=== PATIENT | male | born 1975 | race African-American/Black ===

== ENCOUNTER 2017-02-07 12:41 | Inpatient (IN) | payer OTHER ==
[2017-02-07 14:03] VITALS: BMI 32.4
--- NOTE | 2017-02-07 15:37 | HP ---
CIWA Score - CIWA Score Nausea/Vomitin-No Nausea/No Vomiting Muscle Tremors: 4-Moderate,w/Arms Extend Anxiety: 3 Agitation: 4-Moderately Restless Paroxysmal Sweats: 3 Orientation: 0-Oriented Tacttile Disturbances: 0-None Auditory Disturbances: 0-None Visual Disturbances: 0-None Headache: 1-Very Mild CIWA-Ar Total Score: 15 Admission ROS BHS - HPI Chief Complaint: I never want to drink again. Allergies/Adverse Reactions: Allergies Allergy/AdvReac Type Severity Reaction Status Date / Time No Known Allergies Allergy Verified 02/07/17 14:33 History of Present Illness: pt is a 41yr old male with a history of alcohol and cocaine dependence seeking detox for treatment. Exam Limitations: No Limitations - Ebola screening Have you traveled outside of the country in the last 21 days: No Have you had contact with anyone from an Ebola affected area: No Have you been sick,other than usual withdrawal symptoms: No Do you have a fever: No - Review of Systems Constitutional: Chills, Diaphoresis, Loss of Appetite, Night Sweats, Changes in sleep, Unintentional Wgt. Loss EENT: reports: No Symptoms Reported Respiratory: reports: No Symptoms reported Cardiac: reports: No Symptoms Reported GI: reports: Poor Appetite, Poor Fluid Intake : reports: No Symptoms Reported Musculoskeletal: reports: Back Pain, Joint Pain Integumentary: reports: Flushing, Sweating Neuro: reports: Tingling, Tremors Endocrine: reports: Excessive Sweating, Flushing, Intolerance to Cold, Intolerance to Heat Hematology: reports: No Symptoms Reported Psychiatric: reports: Judgement Intact, Mood/Affect Appropiate, Orientated x3, Agitated, Anxious Other Systems: Reviewed and Negative Patient History - Patient Medical History Hx Anemia: No Hx Asthma: No Hx Chronic Obstructive Pulmonary Disease (COPD): No Hx Cancer: No Hx Cardiac Disorders: No Hx Congestive Heart Failure: No Hx Hypertension: Yes Hx Hypercholesterolemia: Yes (NO CURRENT MED) Hx Pacemaker: No HX Cerebrovascular Accident: No Hx Seizures: No Hx Dementia: No Hx Diabetes: Yes (ON METFORMIN) Hx Gastrointestinal Disorders: No ([id number]) Hx Liver Disease: No Hx Genitourinary Disorders: No Hx Sexually Transmitted Disorders: No Hx Renal Disease (ESRD): No Hx Thyroid Disease: No Hx Human Immunodeficiency Virus (HIV): No (NEGATIVE HX) Hx Hepatitis C: No Hx Depression: Yes Hx Suicide Attempt: No Hx Bipolar Disorder: No Hx Schizophrenia: No Other Medical History: insomnia - Patient Surgical History Past Surgical History: Yes Hx Orthopedic Surgery: Yes (L tibia fx sx in 2015;R FIBULA 10 YRS AGO) Anesthesia Reaction: No - PPD History Previous Implant?: Yes Documented Results: Negative w/proof Implanted On Prior [facility] Admission?: Yes Results: 0 mm PPD to be Administered?: Yes - Reproductive History Patient is a Female of Child Bearing Age (11 -55 yrs old): No - Smoking Cessation Smoking history: Current some day smoker Have you smoked in the past 12 months: Yes Aproximately how many cigarettes per day: 1 Hx Chewing Tobacco Use: No Initiated information on smoking cessation: Yes 'Breaking Loose' booklet given: 02/07/17 - Substance & Tx. History Hx Alcohol Use: Yes Hx Substance Use: Yes Substance Use Type: Alcohol, Cocaine Hx Substance Use Treatment: Yes (last detox 10/2015) - Substances Abused Alcohol Route: Oral Frequency: Daily Amount used: vodka(4-1/2 pints)/beer(5-24oz cans) Age of first use: 16 Date of Last Use: 02/06/17 Crack Route: Smoking Frequency: Daily Amount used: $60 Age of first use: 27 Date of Last Use: 02/06/17 Family Disease History - Family Disease History Family Disease History: Diabetes: Father (), Mother (), Heart Disease: Father, Mother, CA: Father, Mother Admission Physical Exam BHS - Vital Signs Vital Signs: Vital Signs - 24 hr 02/07/17 14:01 Temperature 98.1 F Pulse Rate 84 Respiratory 18 Rate Blood Pressure 144/85 - Physical General Appearance: Yes: Appropriately Dressed, Moderate Distress, Obese, Tremorous, Irritable, Sweating, Anxious HEENTM: Yes: Hearing grossly Normal, Hearing Decreased, Nasal Congestion Respiratory: Yes: Lungs Clear, Normal Breath Sounds, No Respiratory Distress Neck: Yes: No masses,lesions,Nodules Breast: Yes: Within Normal Limits Cardiology: Yes: Regular Rhythm, Regular Rate, S1, S2 Abdominal: Yes: Normal Bowel Sounds, Non Tender, Soft Genitourinary: Yes: Within Normal Limits Back: Yes: Normal Inspection Musculoskeletal: Yes: full range of Motion, Back pain Extremities: Yes: Normal Capillary Refill, Normal Inspection, Non-Tender, Tremors Neurological: Yes: Fully Oriented, Alert, Normal Response Integumentary: Yes: Normal Color, Diaphoresis Lymphatic: Yes: Within Normal Limits - Diagnostic (1) Alcohol dependence with uncomplicated withdrawal Current Visit: Yes Status: Chronic (2) Cocaine dependence, uncomplicated Current Visit: Yes Status: Chronic (3) Hypertension Current Visit: Yes Status: Chronic Qualifiers: Hypertension type: essential hypertension (4) Nicotine dependence Current Visit: Yes Status: Chronic Qualifiers: Nicotine product type: cigarettes Substance use status: uncomplicated Qualified Code(s): F17.210 - Nicotine dependence, cigarettes, uncomplicated (5) Type 2 diabetes mellitus Current Visit: Yes Status: Chronic Qualifiers: Diabetes mellitus complication status: without complication Diabetes mellitus long term care pharmacist insulin use: with long term care pharmacist use Qualified Code(s): E11.9 - Type 2 diabetes mellitus without complications; 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
[2017-02-07] MEDS ORDERED: MAGNESIUM HYDROX 2400MG/30ML ORAL SUSPENSION 30 ML CUP PO PRN (15:46)
[2017-02-07] MEDS ORDERED: chlordiazePOXIDE HCL 25 MG CAPSULE PO PRN (15:46)
[2017-02-07] MEDS ORDERED: MENTHOL/PHENOL 1 EACH UD MM PRN (15:46)
[2017-02-07] MEDS ORDERED: guaiFENesin/D-METHORPHAN HB 10 ML UNIT-DOSE CUPS PO PRN (15:46)
[2017-02-07] MEDS ORDERED: LOPERAMIDE HCL 2 MG CAPSULE PO PRN (15:46)
[2017-02-07] MEDS ORDERED: MAGNESIUM CITRATE 300 ML BOTTLE PO PRN (15:46)
[2017-02-07] MEDS ORDERED: diphenhydrAMINE HCL 50 MG CAPSULE PO PRN (15:46)
[2017-02-07] MEDS ORDERED: ACETAMINOPHEN 325 MG TABLET (FP) PO PRN (15:46)
[2017-02-07] MEDS ORDERED: chlordiazePOXIDE HCL 25 MG CAPSULE PO ONE (15:46)
[2017-02-07] MEDS ORDERED: NICOTINE POLACRILEX 4 MG GUM BC PRN (15:46)
[2017-02-07] MEDS ORDERED: hydrOXYzine PAMOATE 50 MG CAPSULE (FP) PO PRN (15:46)
[2017-02-07] MEDS ORDERED: IBUPROFEN 400 MG TABLET (FP) PO PRN (15:46)
[2017-02-07] MEDS ORDERED: MAG HYDROX/AL HYDROX/SIMETH 30 ML UNIT-DOSE CUP PO PRN (15:46)
[2017-02-07] MEDS ORDERED: P-EPHED 60MG/TRIPROLIDI 2.5MG TABLET PO PRN (15:46)
[2017-02-07] MEDS ORDERED: INSULIN (NOVOLOG) ASPART 100 UNITS/ML 10ML VIAL ONE (19:29)
[2017-02-07] MEDS: LISINOPRIL 10 MG TABLET (FP) PO SCH (19:35)
[2017-02-07] MEDS: HYDROCHLOROTHIAZIDE 25 MG TABLET (FP) PO SCH (19:36)
[2017-02-07] MEDS: INSULIN (NOVOLOG) ASPART 100 UNITS/ML 10ML VIAL SQ SCH (19:44)
[2017-02-07] MEDS: chlordiazePOXIDE HCL 25 MG CAPSULE PO SCH ×2 (19:54→22:29)
[2017-02-07] MEDS: THIAMINE HCL 100 MG TABLET (FP) PO SCH (22:29)
[2017-02-08] MEDS: chlordiazePOXIDE HCL 25 MG CAPSULE PO SCH ×4 (06:02→22:35)
[2017-02-08] MEDS ORDERED: INSULIN (NOVOLOG) ASPART 100 UNITS/ML 10ML VIAL ONE ×3 (06:16→17:06)
[2017-02-08] MEDS: INSULIN (NOVOLOG) ASPART 100 UNITS/ML 10ML VIAL SQ SCH ×3 (06:16→17:10)
[2017-02-08 09:24] LABS: HIV 1 & 2 AB NEGATIVE; HIV 1 AGp24 NEGATIVE
[2017-02-08 09:57] LABS: MCHC 31.7 g/dl (32.0-35.9); MEAN CELL VOLUME 88.4 fl (80-96); MEAN PLT VOLUME 10.7 fl (7.5-11.1); PLATELET COUNT 454 K/MM3 (134-434); RDW 13.4 % (11.9-15.9); WHITE BLOOD COUNT 8.6 K/mm3 (4.0-10.0)
[2017-02-08] MEDS: LISINOPRIL 10 MG TABLET (FP) PO SCH (10:30)
[2017-02-08] MEDS: PRENATAL VITAMINS W/ FOLIC ACID TABLET (FP) PO SCH (10:30)
[2017-02-08] MEDS: NICOTINE 7 MG/24 HOURS TOPICAL PATCH TD SCH (10:30)
[2017-02-08] MEDS: HYDROCHLOROTHIAZIDE 25 MG TABLET (FP) PO SCH (10:30)
[2017-02-08 10:49] LABS: ALBUMIN 3.5 g/dl (3.4-5.0); ALK PHOS 102 U/L (45-117); ANION GAP 9 (8-16); BILIRUBIN,TOTAL 0.3 mg/dL (0.2-1.0); CALCIUM 9.7 mg/dL (8.5-10.1); CO2 26 mmol/L (21-32); CREATININE 1.1 mg/dL (0.7-1.3); GLUCOSE,RANDOM 216 mg/dL (74-106); SGOT/AST 17 U/L (15-37); SGPT/ALT 21 U/L (12-78); TOT PROT 7.5 g/dl (6.4-8.2)
--- NOTE | 2017-02-08 10:51 | PN ---
S CIWA - CIWA Score Nausea/Vomitin Muscle Tremors: 4-Moderate,w/Arms Extend Anxiety: 4-Mod. Anxious/Guarded Agitation: 4-Moderately Restless Paroxysmal Sweats: 3 Orientation: 0-Oriented Tacttile Disturbances: 1-Very Mild Itch/Numbness Auditory Disturbances: 0-None Visual Disturbances: 0-None Headache: 1-Very Mild CIWA-Ar Total Score: 20 BHS Progress Note (SOAP) Subjective: nausea, sweats, interrupted sleep, anxiety, tremors Objective: 02/08/17 10:50 Vital Signs - 24 hr 02/07/17 02/07/17 02/08/17 14:01 22:20 00:34 Temperature 98.1 F 98.7 F Pulse Rate 84 64 Respiratory 18 19 18 Rate Blood Pressure 144/85 158/88 02/08/17 02/08/17 02/08/17 03:26 06:34 09:25 Temperature 98.1 F 99.8 F H Pulse Rate 75 76 Respiratory 18 18 18 Rate Blood Pressure 127/76 128/83 Laboratory Tests 02/07/17 02/07/17 02/07/17 15:00 15:09 19:24 WBC RBC Hgb Hct MCV MCH MCHC RDW Plt Count MPV Sodium Potassium Chloride POC Glucometer 233 258 HIV 1&2 Antibody Screen Negative HIV P24 Antigen Negative 02/08/17 02/08/17 02/08/17 06:00 06:00 06:00 WBC 8.6 RBC 3.98 L Hgb 11.1 L D Hct 35.2 L MCV 88.4 MCH 28.0 MCHC 31.7 L RDW 13.4 Plt Count 454 H D MPV 10.7 Sodium 139 Potassium 4.4 Chloride 104 POC Glucometer 228 HIV 1&2 Antibody Screen HIV P24 Antigen Assessment: 02/08/17 10:50 withdrawal sx, hyperglycemia Plan: cont detox, fluids, encourage ambulation, control BS
--- NOTE | 2017-02-08 11:37 | CONSULT ---
[facility] Psychiatric Consult - Data Date of interview: 02/08/17 Admission source: [facility] Identifying data: Readmission to [facility] for this 41 y/o AA male seeking detox treatment on for alcohol and cocaine (crack) dependence.Patient is single,a father of three,homeless,unemployed and supported on welfare. Substance Abuse History: Confirmed by patient. Smoking Cessation. Smoking history: Current some day smoker. Have you smoked in the past 12 months: Yes. Aproximately how many cigarettes per day: 1. Hx Chewing Tobacco Use: No. Initiated information on smoking cessation: Yes. 'Breaking Loose' booklet given : 02/07/17. - Substance & Tx. History. Hx Alcohol Use: Yes. Hx Substance Use : Yes. Substance Use Type: Alcohol, Cocaine. Hx Substance Use Treatment: Yes ( last detox 10/2015). - Substances Abused. Alcohol. Route: Oral. Frequency : Daily. Amount used: vodka(4-1/2 pints)/beer(5-24oz cans). Age of first use: 16. Date of Last Use: 02/06/17. Crack. Route: Smoking. Frequency: Daily. Amount used: $60. Age of first use: 27. Date of Last Use: 02/06/17 Medical History: Diabetes mellitus,obesity,hypertension and low back pain.History of orthosurgery for fracture of left tibia (2014) and right fibula (2005). Psychiatric History: History of one psychiatric hospitalization (2009) at [facility].Questionable diagnosis of MDD.No history of OPD care.Mr Choi denies history of suicide attempts. Physical/Sexual Abuse/Trauma History: No history of abuse. Additional Comment: Urine Drug Screen Results: JAKY-Cocaine, BZO- Benzodiazepines.Noted. Mental Status Exam - Mental Status Exam Alert and Oriented to: Time, Place, Person Cognitive Function: Good Patient Appearance: Well Groomed Mood: Withdrawn, Hopeful, Euthymic Affect: Normal Range Patient Behavior: Fatigued, Cooperative Speech Pattern: Clear Voice Loudness: Normal Thought Process: Intact, Goal Oriented Thought Disorder: Not Present Hallucinations: Denies Suicidal Ideation: Denies Homicidal Ideation: Denies Insight/Judgement: Poor Sleep: Poorly, Difficulty falling asleep (wants trazodone) Appetite: Good Muscle strength/Tone: Normal Gait/Station: Normal Psychiatric Findings - Problem List ([place] 1, 2,3) (1) Alcohol dependence with uncomplicated withdrawal Current Visit: Yes Status: Acute (2) Cocaine dependence, uncomplicated Current Visit: Yes Status: Acute (3) Nicotine dependence Current Visit: Yes Status: Acute Qualifiers: Nicotine product type: cigarettes Substance use status: uncomplicated Qualified Code(s): F17.210 - Nicotine dependence, cigarettes, uncomplicated (4) Hypertension Current Visit: Yes Status: Chronic Qualifiers: Hypertension type: essential hypertension (5) Type 2 diabetes mellitus Current Visit: Yes Status: Chronic Qualifiers: Diabetes mellitus complication status: without complication Diabetes mellitus intermediate project manager insulin use: with intermediate project manager use Qualified Code(s): E11.9 - Type 2 diabetes mellitus without complications (6) Obese Current Visit: Yes Status: Chronic (7) Insomnia Current Visit: Yes Status: Acute - Initial Treatment Plan Initial Treatment Plan: Psychoeducation.Detoxification.Observation.
[2017-02-08 17:27] LABS: URINE APPEARANCE CLEAR; URINE BILIRUBIN NEGATIVE (NEGATIVE); URINE BLOOD NEGATIVE (NEGATIVE); URINE COLOR LTYELLOW; URINE GLUCOSE (UA) 3+ (NEGATIVE); URINE KETONE NEGATIVE (NEGATIVE); URINE LEUK ESTERASE NEGATIVE (NEGATIVE); URINE NITRITE NEGATIVE (NEGATIVE); URINE PROTEIN NEGATIVE (NEGATIVE); URINE UROBILINOGEN NEGATIVE mg/dL (0.2-1.0)
[2017-02-08] MEDS: traZODone HCL 100 MG TABLET (FP) PO SCH (22:35)
[2017-02-08] MEDS: THIAMINE HCL 100 MG TABLET (FP) PO SCH (22:35)
[2017-02-09] MEDS: chlordiazePOXIDE HCL 25 MG CAPSULE PO SCH ×2 (06:05→10:42)
[2017-02-09] MEDS ORDERED: INSULIN (NOVOLOG) ASPART 100 UNITS/ML 10ML VIAL ONE ×2 (07:46→16:31)
[2017-02-09] MEDS: INSULIN (NOVOLOG) ASPART 100 UNITS/ML 10ML VIAL SQ SCH ×3 (07:56→16:45)
[2017-02-09] MEDS ORDERED: ONDANSETRON *ODT* 4 MG TABLET SL PRN (10:22)
[2017-02-09] MEDS: LISINOPRIL 10 MG TABLET (FP) PO SCH (10:42)
[2017-02-09] MEDS: HYDROCHLOROTHIAZIDE 25 MG TABLET (FP) PO SCH (10:42)
[2017-02-09] MEDS: NICOTINE 7 MG/24 HOURS TOPICAL PATCH TD SCH (10:42)
[2017-02-09] MEDS: PRENATAL VITAMINS W/ FOLIC ACID TABLET (FP) PO SCH (10:42)
--- NOTE | 2017-02-09 12:40 | PN ---
[facility] CIWA - CIWA Score Nausea/Vomitin-Int. Nausea w/Dry Heave Muscle Tremors: 4-Moderate,w/Arms Extend Anxiety: 4-Mod. Anxious/Guarded Agitation: 3 Paroxysmal Sweats: 3 Orientation: 0-Oriented Tacttile Disturbances: 2-Mild Itch/Numbness/Burn Auditory Disturbances: 0-None Visual Disturbances: 0-None Headache: 0-None Present CIWA-Ar Total Score: 20 [facility] Progress Note (SOAP) Subjective: Tremors, Nausea, Stomach Cramping, Anxious, Fatigue, Body Aches, Interrupted Sleep, Sweating. Objective: PT. A & O X 3, OBSERVED AMBULATING ON UNIT. NO ACUTE DISTRESS. 02/09/17 12:39 Vital Signs Temperature 96.5 F L 02/09/17 09:58 Pulse Rate 96 H 02/09/17 09:58 Respiratory Rate 16 02/09/17 09:58 Blood Pressure 134/76 02/09/17 09:58 O2 Sat by Pulse Oximetry (%) Laboratory Tests 02/07/17 02/07/17 02/07/17 15:00 15:09 19:24 WBC RBC Hgb Hct MCV MCH MCHC RDW Plt Count MPV Sodium Potassium Chloride Carbon Dioxide Anion Gap BUN Creatinine Creat Clearance w eGFR POC Glucometer 233 258 Random Glucose Calcium Total Bilirubin AST ALT Alkaline Phosphatase Total Protein Albumin Urine Color Urine Appearance Urine pH Ur Specific [place] Urine Protein Urine Glucose (UA) Urine Ketones Urine Blood Urine Nitrite Urine Bilirubin Urine Urobilinogen Ur Leukocyte Esterase RPR Titer HIV 1&2 Antibody Screen Negative HIV P24 Antigen Negative 02/08/17 02/08/17 02/08/17 06:00 06:00 06:00 WBC 8.6 RBC 3.98 L Hgb 11.1 L D Hct 35.2 L MCV 88.4 MCH 28.0 MCHC 31.7 L RDW 13.4 Plt Count 454 H D MPV 10.7 Sodium 139 Potassium 4.4 Chloride 104 Carbon Dioxide 26 D Anion Gap 9 BUN 15 Creatinine 1.1 Creat Clearance w eGFR > 60 POC Glucometer Random Glucose 216 H D Calcium 9.7 Total Bilirubin 0.3 AST 17 D ALT 21 D Alkaline Phosphatase 102 D Total Protein 7.5 Albumin 3.5 Urine Color Urine Appearance Urine pH Ur Specific [place] Urine Protein Urine Glucose (UA) Urine Ketones Urine Blood Urine Nitrite Urine Bilirubin Urine Urobilinogen Ur Leukocyte Esterase RPR Titer Nonreactive HIV 1&2 Antibody Screen HIV P24 Antigen 02/08/17 02/08/17 02/08/17 06:00 11:25 14:00 WBC RBC Hgb Hct MCV MCH MCHC RDW Plt Count MPV Sodium Potassium Chloride Carbon Dioxide Anion Gap BUN Creatinine Creat Clearance w eGFR POC Glucometer 228 279 Random Glucose Calcium Total Bilirubin AST ALT Alkaline Phosphatase Total Protein Albumin Urine Color Ltyellow Urine Appearance Clear Urine pH 5.0 Ur Specific [place] 1.015 Urine Protein Negative Urine Glucose (UA) 3+ H Urine Ketones Negative Urine Blood Negative Urine Nitrite Negative Urine Bilirubin Negative Urine Urobilinogen Negative Ur Leukocyte Esterase Negative RPR Titer HIV 1&2 Antibody Screen HIV P24 Antigen 02/08/17 02/09/17 16:19 06:04 WBC RBC Hgb Hct MCV MCH MCHC RDW Plt Count MPV Sodium Potassium Chloride Carbon Dioxide Anion Gap BUN Creatinine Creat Clearance w eGFR POC Glucometer 236 244 Random Glucose Calcium Total Bilirubin AST ALT Alkaline Phosphatase Total Protein Albumin Urine Color Urine Appearance Urine pH Ur Specific [place] Urine Protein Urine Glucose (UA) Urine Ketones Urine Blood Urine Nitrite Urine Bilirubin Urine Urobilinogen Ur Leukocyte Esterase RPR Titer HIV 1&2 Antibody Screen HIV P24 Antigen LABS NOTED. Assessment: 02/09/17 12:39 WITHDRAWAL SYMPTOMS. Plan: CONTINUE DETOX.
[2017-02-09] MEDS: chlordiazePOXIDE 5 MG CAPSULE PO SCH ×2 (16:45→22:20)
[2017-02-09] MEDS: THIAMINE HCL 100 MG TABLET (FP) PO SCH (22:20)
[2017-02-09] MEDS: traZODone HCL 100 MG TABLET (FP) PO SCH (22:20)
[2017-02-10] MEDS: chlordiazePOXIDE 5 MG CAPSULE PO SCH ×2 (05:33→10:58)
[2017-02-10] MEDS ORDERED: INSULIN (NOVOLOG) ASPART 100 UNITS/ML 10ML VIAL ONE ×3 (08:14→16:39)
[2017-02-10] MEDS: INSULIN (NOVOLOG) ASPART 100 UNITS/ML 10ML VIAL SQ SCH ×3 (08:17→17:00)
[2017-02-10] MEDS: HYDROCHLOROTHIAZIDE 25 MG TABLET (FP) PO SCH (10:58)
[2017-02-10] MEDS: PRENATAL VITAMINS W/ FOLIC ACID TABLET (FP) PO SCH (10:58)
[2017-02-10] MEDS: LISINOPRIL 10 MG TABLET (FP) PO SCH (10:58)
[2017-02-10] MEDS: NICOTINE 7 MG/24 HOURS TOPICAL PATCH TD SCH (10:58)
--- NOTE | 2017-02-10 11:32 | PN ---
[facility] Progress Note (SOAP) Subjective: Tremors, Stomach Cramping, Body Aches, Sweating, Interrupted sleep. Objective: PT. A & O X 3, OBSERVED AMBULATING ON UNIT. NO ACUTE DISTRESS. PT. DENIES CHEST PAIN. 02/10/17 11:29 Vital Signs Temperature 96.3 F L 02/10/17 09:17 Pulse Rate 80 02/10/17 09:17 Respiratory Rate 18 02/10/17 09:17 Blood Pressure 149/97 02/10/17 09:17 O2 Sat by Pulse Oximetry (%) Laboratory Tests 02/07/17 02/07/17 02/07/17 15:00 15:09 19:24 WBC RBC Hgb Hct MCV MCH MCHC RDW Plt Count MPV Sodium Potassium Chloride Carbon Dioxide Anion Gap BUN Creatinine Creat Clearance w eGFR POC Glucometer 233 258 Random Glucose Calcium Total Bilirubin AST ALT Alkaline Phosphatase Total Protein Albumin Urine Color Urine Appearance Urine pH Ur Specific [place] Urine Protein Urine Glucose (UA) Urine Ketones Urine Blood Urine Nitrite Urine Bilirubin Urine Urobilinogen Ur Leukocyte Esterase RPR Titer HIV 1&2 Antibody Screen Negative HIV P24 Antigen Negative 02/08/17 02/08/17 02/08/17 06:00 06:00 06:00 WBC 8.6 RBC 3.98 L Hgb 11.1 L D Hct 35.2 L MCV 88.4 MCH 28.0 MCHC 31.7 L RDW 13.4 Plt Count 454 H D MPV 10.7 Sodium 139 Potassium 4.4 Chloride 104 Carbon Dioxide 26 D Anion Gap 9 BUN 15 Creatinine 1.1 Creat Clearance w eGFR > 60 POC Glucometer Random Glucose 216 H D Calcium 9.7 Total Bilirubin 0.3 AST 17 D ALT 21 D Alkaline Phosphatase 102 D Total Protein 7.5 Albumin 3.5 Urine Color Urine Appearance Urine pH Ur Specific [place] Urine Protein Urine Glucose (UA) Urine Ketones Urine Blood Urine Nitrite Urine Bilirubin Urine Urobilinogen Ur Leukocyte Esterase RPR Titer Nonreactive HIV 1&2 Antibody Screen HIV P24 Antigen 02/08/17 02/08/17 02/08/17 06:00 11:25 14:00 WBC RBC Hgb Hct MCV MCH MCHC RDW Plt Count MPV Sodium Potassium Chloride Carbon Dioxide Anion Gap BUN Creatinine Creat Clearance w eGFR POC Glucometer 228 279 Random Glucose Calcium Total Bilirubin AST ALT Alkaline Phosphatase Total Protein Albumin Urine Color Ltyellow Urine Appearance Clear Urine pH 5.0 Ur Specific [place] 1.015 Urine Protein Negative Urine Glucose (UA) 3+ H Urine Ketones Negative Urine Blood Negative Urine Nitrite Negative Urine Bilirubin Negative Urine Urobilinogen Negative Ur Leukocyte Esterase Negative RPR Titer HIV 1&2 Antibody Screen HIV P24 Antigen 02/08/17 02/09/17 02/09/17 16:19 06:04 16:19 WBC RBC Hgb Hct MCV MCH MCHC RDW Plt Count MPV Sodium Potassium Chloride Carbon Dioxide Anion Gap BUN Creatinine Creat Clearance w eGFR POC Glucometer 236 244 286 Random Glucose Calcium Total Bilirubin AST ALT Alkaline Phosphatase Total Protein Albumin Urine Color Urine Appearance Urine pH Ur Specific [place] Urine Protein Urine Glucose (UA) Urine Ketones Urine Blood Urine Nitrite Urine Bilirubin Urine Urobilinogen Ur Leukocyte Esterase RPR Titer HIV 1&2 Antibody Screen HIV P24 Antigen 02/10/17 05:32 WBC RBC Hgb Hct MCV MCH MCHC RDW Plt Count MPV Sodium Potassium Chloride Carbon Dioxide Anion Gap BUN Creatinine Creat Clearance w eGFR POC Glucometer 392 Random Glucose Calcium Total Bilirubin AST ALT Alkaline Phosphatase Total Protein Albumin Urine Color Urine Appearance Urine pH Ur Specific [place] Urine Protein Urine Glucose (UA) Urine Ketones Urine Blood Urine Nitrite Urine Bilirubin Urine Urobilinogen Ur Leukocyte Esterase RPR Titer HIV 1&2 Antibody Screen HIV P24 Antigen LABS NOTED. Assessment: 02/10/17 11:29 WITHDRAWAL SYMPTOMS. Plan: CONTINUE DETOX. INCREASE LISINOPRIL DAILY DOSE TO 10 MG PO BID. INCREASE DAILY PO FLUID INTAKE.
--- NOTE | 2017-02-10 11:36 | EKG ---
Test Reason : Blood Pressure : / mmHG Vent. Rate : 063 BPM Atrial Rate : 063 BPM P-R Int : 126 ms QRS Dur : 102 ms QT Int : 424 ms P-R-T Axes : 022 065 055 degrees QTc Int : 433 ms NORMAL SINUS RHYTHM NORMAL ECG NO PREVIOUS ECGS AVAILABLE Confirmed by PIYUSH VIVAS MD ([id number]) on 02/10/2017 11:36:26 AM Referred By: Confirmed By:PIYUSH VIVAS MD
[2017-02-10] MEDS: chlordiazePOXIDE HCL 10 MG CAPSULE PO SCH ×2 (17:00→22:26)
[2017-02-10] MEDS ORDERED: LISINOPRIL 10 MG TABLET (FP) PO SCH (22:00)
[2017-02-10] MEDS: traZODone HCL 100 MG TABLET (FP) PO SCH (22:26)
[2017-02-10] MEDS: THIAMINE HCL 100 MG TABLET (FP) PO SCH (22:26)
[2017-02-11] MEDS: chlordiazePOXIDE HCL 10 MG CAPSULE PO SCH (05:21)
[2017-02-11 06:36] VITALS: BP 134/88; PULSE 72; TEMP 97.3
[2017-02-11] MEDS ORDERED: INSULIN (NOVOLOG) ASPART 100 UNITS/ML 10ML VIAL ONE (06:45)
[2017-02-11] MEDS: INSULIN (NOVOLOG) ASPART 100 UNITS/ML 10ML VIAL SQ SCH (06:47)
== END 2017-02-11 06:55 | disposition home or self-care (01) | DRG 774 ==
LOC: YASAS 12:41 → Y3N 18:18
PROVIDERS: ADMIT Internal Medicine Addiction Medicine; ATTEND Internal Medicine Addiction Medicine
PROC: HZ2ZZZZ Detoxification Services for Substance Abuse Treatment (ICD-10-PCS; principal; 2017-02-11)
DX: F10.230 Alcohol dependence with withdrawal, uncomplicated (principal); F14.20 Cocaine dependence, uncomplicated; F17.210 Nicotine dependence, cigarettes, uncomplicated; F32.9 Major depressive disorder, single episode, unspecified; G47.00 Insomnia, unspecified; I10 Essential (primary) hypertension; E11.9 Type 2 diabetes mellitus without complications; Z79.84 Long term (current) use of oral hypoglycemic drugs; E66.09 Other obesity due to excess calories; Z68.32 Body mass index [BMI] 32.0-32.9, adult; Z87.311 Personal history of (healed) other pathological fracture
CPT/HCPCS: 36415; 80053; 81003; 85027; 86593; 87389; 93005; 93010

== ENCOUNTER 2017-04-06 13:06 | Inpatient (IN) | payer OTHER ==
[2017-04-06 16:30] VITALS: BMI 32.4
--- NOTE | 2017-04-06 18:03 | HP ---
CIWA Score - CIWA Score Nausea/Vomitin-Mild Nausea/No Vomiting Muscle Tremors: 4-Moderate,w/Arms Extend Anxiety: 4-Mod. Anxious/Guarded Agitation: 4-Moderately Restless Paroxysmal Sweats: 2 Orientation: 0-Oriented Tacttile Disturbances: 0-None Auditory Disturbances: 0-None Visual Disturbances: 0-None Headache: 0-None Present CIWA-Ar Total Score: 15 Admission ROS BHS - HPI Chief Complaint: withdrawal sx Allergies/Adverse Reactions: Allergies Allergy/AdvReac Type Severity Reaction Status Date / Time No Known Allergies Allergy Verified 02/07/17 14:33 History of Present Illness: 41 years old male with long history of alcohol cocaine dependence has hypertension diabetes i and depression is admitted to detox patient reposts that taking three medications for hypertension Exam Limitations: No Limitations - Ebola screening Have you traveled outside of the country in the last 21 days: No Have you had contact with anyone from an Ebola affected area: No Have you been sick,other than usual withdrawal symptoms: No Do you have a fever: No - Review of Systems Constitutional: Changes in sleep, Weight Stable EENT: reports: No Symptoms Reported Respiratory: reports: SOB with Exertion, Productive cough (clear) Cardiac: reports: No Symptoms Reported GI: reports: Nausea, Poor Fluid Intake, Abdominal cramping : reports: No Symptoms Reported Musculoskeletal: reports: Back Pain Integumentary: reports: No Symptoms Reported Neuro: reports: Tremors Endocrine: reports: Increased Hunger Hematology: reports: No Symptoms Reported Psychiatric: reports: Judgement Intact, Orientated x3, Depressed Other Systems: Reviewed and Negative Patient History - Patient Medical History Hx Anemia: No Hx Asthma: No Hx Chronic Obstructive Pulmonary Disease (COPD): No Hx Cancer: No Hx Cardiac Disorders: No Hx Congestive Heart Failure: No Hx Hypertension: Yes Hx Hypercholesterolemia: Yes (NO CURRENT MED) Hx Pacemaker: No HX Cerebrovascular Accident: No Hx Seizures: No Hx Dementia: No Hx Diabetes: Yes Hx Gastrointestinal Disorders: No Hx Liver Disease: No Hx Genitourinary Disorders: No Hx Sexually Transmitted Disorders: No Hx Renal Disease (ESRD): No Hx Thyroid Disease: No Hx Human Immunodeficiency Virus (HIV): No (NEGATIVE HX) Hx Hepatitis C: No Hx Depression: Yes Hx Suicide Attempt: Yes (2003 jump from roof) Hx Bipolar Disorder: No Hx Schizophrenia: No - Patient Surgical History Past Surgical History: Yes Hx Neurologic Surgery: No Hx Cataract Extraction: No Hx Cardiac Surgery: No Hx Lung Surgery: No Hx Breast Surgery: No Hx Breast Biopsy: No Hx Abdominal Surgery: No Hx Appendectomy: No Hx Cholecystectomy: No Hx Genitourinary Surgery: No Hx Orthopedic Surgery: Yes (L tibia fx sx in 2014;R FIBULA 2014 YRS AGO) Anesthesia Reaction: No - PPD History Previous Implant?: Yes Documented Results: Negative w/proof Implanted On Prior [facility] Admission?: Yes Date: 02/09/17 Results: 0 mm PPD to be Administered?: No - Smoking Cessation Smoking history: Smoker current status UNK Have you smoked in the past 12 months: No Aproximately how many cigarettes per day: 0 Hx Chewing Tobacco Use: No Initiated information on smoking cessation: No - Substance & Tx. History Hx Alcohol Use: Yes Hx Substance Use: Yes Substance Use Type: Alcohol, Cocaine Hx Substance Use Treatment: Yes (01/2017 [facility] - Substances Abused alcohol Route: Oral Frequency: Daily Amount used: 5 pts vodka Age of first use: 16 Date of Last Use: 04/06/17 etoh Route: Oral Frequency: Daily Amount used: 5 pts vodka Age of first use: 16 Date of Last Use: 04/06/17 Family Disease History - Family Disease History Family Disease History: Diabetes: Father (), Mother (), Brother , Heart Disease: Father, Mother, CA: Father, Mother Admission Physical Exam BHS - Vital Signs Vital Signs: Vital Signs - 24 hr 04/06/17 16:27 Temperature 97.1 F L Pulse Rate 96 H Respiratory 18 Rate Blood Pressure 150/88 - Physical General Appearance: Yes: Appropriately Dressed, Alcohol on Breath, Tremorous, Irritable, Sweating, Anxious HEENTM: Yes: Hearing grossly Normal, Normal ENT Inspection, Normocephalic, Normal Voice Respiratory: Yes: Chest Non-Tender, Lungs Clear, Normal Breath Sounds, No Respiratory Distress, No Accessory Muscle Use Neck: Yes: Supple, Trachea in good position Breast: Yes: Breasts Symetrical Cardiology: Yes: Regular Rhythm, S1, S2, Tachycardia Abdominal: Yes: Within Normal Limits Genitourinary: Yes: Within Normal Limits Back: Yes: Normal Inspection Musculoskeletal: Yes: full range of Motion, Gait Steady Extremities: Yes: Normal Inspection, Normal Range of Motion, Non-Tender, Tremors Neurological: Yes: Fully Oriented, Alert, Motor Strength 5/5, Normal Response, Depressed Affect Integumentary: Yes: Warm Lymphatic: Yes: Within Normal Limits - Diagnostic (1) Alcohol dependence with uncomplicated withdrawal Current Visit: Yes Status: Acute (2) Hypertension Current Visit: Yes Status: Chronic Qualifiers: Hypertension type: essential hypertension (3) Diabetes type I Current Visit: Yes Status: Chronic Qualifiers: Diabetes mellitus complication status: without complication Qualified Code(s): E10.9 - Type 1 diabetes mellitus without complications; E10.9 - Type 1 diabetes mellitus without complications; E10.9 - Type 1 diabetes mellitus without complications; E10.9 - Type 1 diabetes mellitus without complications (4) History of pancreatitis Current Visit: Yes Status: Chronic Comment: last episode 01/2017 (5) Depressed Current Visit: Yes Status: Suspected Qualifiers: Depression Type: dysthymia Qualified Code(s): F34.1 - Dysthymic disorder; F34.1 - Dysthymic disorder; F34.1 - Dysthymic disorder Cleared for Admission [facility] - Detox or Rehab [facility] Level of Care: Medically Managed Detox Regimen/Protocol: Librium [facility] Breath Alcohol Content Breath Alcohol Content: 0.020 Urine Drug Screen - Results Drug Screen Negative: No Urine Drug Screen Results: JAKY-Cocaine, BZO-Benzodiazepines
[2017-04-06] MEDS ORDERED: MAGNESIUM CITRATE 300 ML BOTTLE PO PRN (18:05)
[2017-04-06] MEDS ORDERED: MENTHOL/PHENOL 1 EACH UD MM PRN (18:05)
[2017-04-06] MEDS ORDERED: P-EPHED 60MG/TRIPROLIDI 2.5MG TABLET PO PRN (18:05)
[2017-04-06] MEDS ORDERED: diphenhydrAMINE HCL 50 MG CAPSULE PO PRN (18:05)
[2017-04-06] MEDS ORDERED: MAG HYDROX/AL HYDROX/SIMETH 30 ML UNIT-DOSE CUP PO PRN (18:05)
[2017-04-06] MEDS ORDERED: chlordiazePOXIDE HCL 25 MG CAPSULE PO PRN (18:05)
[2017-04-06] MEDS ORDERED: guaiFENesin/D-METHORPHAN HB 10 ML UNIT-DOSE CUPS PO PRN (18:05)
[2017-04-06] MEDS ORDERED: MAGNESIUM HYDROX 2400MG/30ML ORAL SUSPENSION 30 ML CUP PO PRN (18:05)
[2017-04-06] MEDS ORDERED: LOPERAMIDE HCL 2 MG CAPSULE PO PRN (18:05)
[2017-04-06] MEDS ORDERED: IBUPROFEN 400 MG TABLET (FP) PO PRN (18:05)
[2017-04-06] MEDS ORDERED: ACETAMINOPHEN 325 MG TABLET (FP) PO PRN (18:05)
[2017-04-06] MEDS: chlordiazePOXIDE HCL 25 MG CAPSULE PO SCH (22:19)
[2017-04-06] MEDS ORDERED: INSULIN (NOVOLOG) ASPART 100 UNITS/ML 10ML VIAL ONE (22:19)
[2017-04-06] MEDS: THIAMINE HCL 100 MG TABLET (FP) PO SCH (22:19)
[2017-04-06] MEDS: INSULIN SLIDING SCALE (NOVOLOG) 1 VIAL SQ SCH (22:22)
[2017-04-06] MEDS: INSULIN (NOVOLOG MIX 70/30) 100 UNITS/ML MDV SQ SCH (22:22)
[2017-04-06 22:29] LABS: URINE APPEARANCE CLEAR; URINE BILIRUBIN NEGATIVE (NEGATIVE); URINE BLOOD NEGATIVE (NEGATIVE); URINE COLOR YELLOW; URINE GLUCOSE (UA) 3+ (NEGATIVE); URINE KETONE NEGATIVE (NEGATIVE); URINE NITRITE NEGATIVE (NEGATIVE); URINE PROTEIN NEGATIVE (NEGATIVE); URINE UROBILINOGEN NEGATIVE mg/dL (0.2-1.0)
[2017-04-07] MEDS: chlordiazePOXIDE HCL 25 MG CAPSULE PO SCH ×4 (06:49→22:10)
[2017-04-07] MEDS ORDERED: INSULIN (NOVOLOG) ASPART 100 UNITS/ML 10ML VIAL ONE ×4 (06:57→22:10)
[2017-04-07] MEDS: INSULIN SLIDING SCALE (NOVOLOG) 1 VIAL SQ SCH ×4 (06:58→22:11)
--- NOTE | 2017-04-07 08:17 | CONSULT ---
[facility] Psychiatric Consult - Data Date of interview: 04/07/17 Admission source: [facility] Identifying data: This is 41 years old male with no psychiatric hospitalization history intoxicated with: Alcohol, Cocaine and Xanax Substance Abuse History: Urine Drug Screen Results: JAKY-Cocaine, BZO- Benzodiazepines. - Smoking Cessation. Smoking history: Smoker current status UNK. Have you smoked in the past 12 months: No. Aproximately how many cigarettes per day: 0. Hx Chewing Tobacco Use: No. Initiated information on smoking cessation: No. - Substance & Tx. History. Hx Alcohol Use: Yes. Hx Substance Use: Yes. Substance Use Type: Alcohol, Cocaine. Hx Substance Use Treatment: Yes (01/2017 [facility]). - Substances Abused. alcohol. Route: Oral. Frequency: Daily. Amount used: 5 pts vodka. Age of first use: 16. Date of Last Use: 04/06/17. etoh. Route: Oral. Frequency: Daily. Amount used: 5 pts vodka. Age of first use: 16. Date of Last Use: 04/06/17. Family Disease History Medical History: HTN, DM-1, Hisotyr of Pancreatitis, Obesity Psychiatric History: Patient reports history of depression, denies suicidal history, reports taking prior to admission: Trazodone 100mg po qhs Physical/Sexual Abuse/Trauma History: Denies Additional Comment: Trazodone 100mg po qhsUrine Drug Screen Results: JAKY-Cocaine , BZO-Benzodiazepines Mental Status Exam - Mental Status Exam Alert and Oriented to: Person Patient Appearance: Unkempt Mood: Sad Affect: Flat Patient Behavior: Sedated Speech Pattern: Delayed Voice Loudness: Mildly Soft/Quiet Thought Process: Circumstantial Thought Disorder: Being Controlled Hallucinations: Denies Suicidal Ideation: Denies Homicidal Ideation: Denies Insight/Judgement: Fair Sleep: Difficulty falling asleep Appetite: Weight gain Muscle strength/Tone: Mild Hypotonicity Gait/Station: Shuffling Additional Comments: Trazodone 100mg po qhs Psychiatric Findings - Problem List ([place] 1, 2,3) (1) Alcohol dependence with uncomplicated withdrawal Current Visit: Yes Status: Acute (2) Alcohol-induced sleep disorder Current Visit: No Status: Acute (3) Cocaine dependence, uncomplicated Current Visit: No Status: Acute (4) Nicotine dependence Current Visit: No Status: Acute Qualifiers: Nicotine product type: cigarettes Substance use status: uncomplicated Qualified Code(s): F17.210 - Nicotine dependence, cigarettes, uncomplicated; F17.210 - Nicotine dependence, cigarettes, uncomplicated (5) Drug-induced mood disorder Current Visit: Yes Status: Acute - Initial Treatment Plan Initial Treatment Plan: Trazodone 100mg po qhs
[2017-04-07 10:07] LABS: URINE LEUK ESTERASE Negative (NEGATIVE)
[2017-04-07 10:12] LABS: MCH 27.4 pg (25.7-33.7); MCHC 32.3 g/dl (32.0-35.9); MEAN CELL VOLUME 84.9 fl (80-96); MEAN PLT VOLUME 10.1 fl (7.5-11.1); PLATELET COUNT 227 K/MM3 (134-434); RDW 14.5 % (11.9-15.9); WHITE BLOOD COUNT 7.2 K/mm3 (4.0-10.0)
[2017-04-07] MEDS: PRENATAL VITAMINS W/ FOLIC ACID TABLET (FP) PO SCH (10:16)
[2017-04-07] MEDS: HYDROCHLOROTHIAZIDE 25 MG TABLET (FP) PO SCH (10:18)
[2017-04-07] MEDS: LISINOPRIL 10 MG TABLET (FP) PO SCH (10:18)
[2017-04-07] MEDS: amLODIPine BESYLATE 10 MG TABLET (FP) PO SCH (10:18)
--- NOTE | 2017-04-07 10:40 | PN ---
S CIWA - CIWA Score Nausea/Vomitin-No Nausea/No Vomiting Muscle Tremors: 4-Moderate,w/Arms Extend Anxiety: 3 Agitation: 3 Paroxysmal Sweats: 3 Orientation: 0-Oriented Tacttile Disturbances: 0-None Auditory Disturbances: 0-None Visual Disturbances: 0-None Headache: 0-None Present CIWA-Ar Total Score: 13 BHS Progress Note (SOAP) Subjective: sweats interrupted sleep agitation anxiety Objective: 04/07/17 10:39 Vital Signs Temperature 97.1 F L 04/07/17 10:06 Pulse Rate 76 04/07/17 10:06 Respiratory Rate 16 04/07/17 10:06 Blood Pressure 146/76 04/07/17 10:06 O2 Sat by Pulse Oximetry (%) Laboratory Tests 04/06/17 04/06/17 04/06/17 17:08 22:10 22:16 WBC RBC Hgb Hct MCV MCH MCHC RDW Plt Count MPV POC Glucometer 247 221 Urine Color Yellow Urine Appearance Clear Urine pH 5.0 Urine Protein Negative Urine Glucose (UA) 3+ H Urine Ketones Negative Urine Blood Negative Urine Nitrite Negative Urine Bilirubin Negative Urine Urobilinogen Negative 04/07/17 04/07/17 06:52 07:00 WBC 7.2 RBC 4.69 Hgb 12.9 D Hct 39.8 MCV 84.9 MCH 27.4 MCHC 32.3 RDW 14.5 Plt Count 227 D MPV 10.1 POC Glucometer 209 Urine Color Urine Appearance Urine pH Urine Protein Urine Glucose (UA) Urine Ketones Urine Blood Urine Nitrite Urine Bilirubin Urine Urobilinogen aaox3 ambulating no acute distress Assessment: 04/07/17 10:39 withdrawal sx Plan: continue detox increase fluids labs pending
--- NOTE | 2017-04-07 10:46 | EKG ---
Test Reason : Blood Pressure : / mmHG Vent. Rate : 071 BPM Atrial Rate : 071 BPM P-R Int : 138 ms QRS Dur : 094 ms QT Int : 392 ms P-R-T Axes : 029 059 060 degrees QTc Int : 425 ms NORMAL SINUS RHYTHM NORMAL ECG WHEN COMPARED WITH ECG OF 07-FEB-2017 18:40, NO SIGNIFICANT CHANGE WAS FOUND Confirmed by PIYUSH VIVAS MD ([id number]) on 04/07/2017 10:45:28 AM Referred By: Confirmed By:PIYUSH VIVAS MD
[2017-04-07 10:48] LABS: ALBUMIN 3.3 g/dl (3.4-5.0); ALK PHOS 70 U/L (45-117); ANION GAP 9 (8-16); BILIRUBIN,TOTAL 0.6 mg/dL (0.2-1.0); CALCIUM 8.5 mg/dL (8.5-10.1); CO2 25 mmol/L (21-32); CREATININE 0.7 mg/dL (0.7-1.3); GLUCOSE,RANDOM 200 mg/dL (74-106); SGOT/AST 15 U/L (15-37); SGPT/ALT 21 U/L (12-78); TOT PROT 6.5 g/dl (6.4-8.2)
[2017-04-07] MEDS ORDERED: FLU VACCINE QUAD 60 MCG/0.5 ML (MDV 17-18) IM ONE (12:00)
[2017-04-07 15:16] LABS: HIV 1 & 2 AB NEGATIVE; HIV 1 AGp24 NEGATIVE
[2017-04-07] MEDS: traZODone HCL 100 MG TABLET (FP) PO SCH (22:10)
[2017-04-07] MEDS: THIAMINE HCL 100 MG TABLET (FP) PO SCH (22:10)
[2017-04-07] MEDS: INSULIN (NOVOLOG MIX 70/30) 100 UNITS/ML MDV SQ SCH (22:11)
[2017-04-08] MEDS: chlordiazePOXIDE HCL 25 MG CAPSULE PO SCH ×3 (06:00→18:01)
[2017-04-08] MEDS ORDERED: INSULIN (NOVOLOG) ASPART 100 UNITS/ML 10ML VIAL ONE ×4 (07:27→22:13)
[2017-04-08] MEDS: INSULIN SLIDING SCALE (NOVOLOG) 1 VIAL SQ SCH ×4 (07:30→22:39)
--- NOTE | 2017-04-08 10:11 | PN ---
S CIWA - CIWA Score Nausea/Vomitin Muscle Tremors: 2 Anxiety: 3 Agitation: 1-Slight > Activity Paroxysmal Sweats: 3 Orientation: 0-Oriented Tacttile Disturbances: 2-Mild Itch/Numbness/Burn Auditory Disturbances: 0-None Visual Disturbances: 0-None Headache: 0-None Present CIWA-Ar Total Score: 13 BHS Progress Note (SOAP) Subjective: interrupted sleep, sweats, lbp Objective: 04/08/17 10:09 Vital Signs Temperature 97.9 F 04/08/17 06:00 Pulse Rate 81 04/08/17 06:00 Respiratory Rate 18 04/08/17 06:00 Blood Pressure 108/60 04/08/17 06:00 O2 Sat by Pulse Oximetry (%) Laboratory Tests 04/06/17 04/06/17 04/06/17 07:00 17:08 22:10 WBC RBC Hgb Hct MCV MCH MCHC RDW Plt Count MPV Sodium Potassium Chloride Carbon Dioxide Anion Gap BUN Creatinine Creat Clearance w eGFR POC Glucometer 247 Random Glucose Calcium Total Bilirubin AST ALT Alkaline Phosphatase Total Protein Albumin Urine Color Yellow Urine Appearance Clear Urine pH 5.0 Ur Specific [place] 1.025 Urine Protein Negative Urine Glucose (UA) 3+ H Urine Ketones Negative Urine Blood Negative Urine Nitrite Negative Urine Bilirubin Negative Urine Urobilinogen Negative Ur Leukocyte Esterase Negative RPR Titer Hepatitis C Antibody <0.1 HIV 1&2 Antibody Screen HIV P24 Antigen 04/06/17 04/07/17 04/07/17 22:16 06:52 07:00 WBC RBC Hgb Hct MCV MCH MCHC RDW Plt Count MPV Sodium Potassium Chloride Carbon Dioxide Anion Gap BUN Creatinine Creat Clearance w eGFR POC Glucometer 221 209 Random Glucose Calcium Total Bilirubin AST ALT Alkaline Phosphatase Total Protein Albumin Urine Color Urine Appearance Urine pH Ur Specific [place] Urine Protein Urine Glucose (UA) Urine Ketones Urine Blood Urine Nitrite Urine Bilirubin Urine Urobilinogen Ur Leukocyte Esterase RPR Titer Hepatitis C Antibody HIV 1&2 Antibody Screen Negative HIV P24 Antigen Negative 04/07/17 04/07/17 04/07/17 07:00 07:00 07:00 WBC 7.2 RBC 4.69 Hgb 12.9 D Hct 39.8 MCV 84.9 MCH 27.4 MCHC 32.3 RDW 14.5 Plt Count 227 D MPV 10.1 Sodium 138 Potassium 3.7 Chloride 104 Carbon Dioxide 25 Anion Gap 9 BUN 12 Creatinine 0.7 D Creat Clearance w eGFR > 60 POC Glucometer Random Glucose 200 H Calcium 8.5 Total Bilirubin 0.6 D AST 15 ALT 21 Alkaline Phosphatase 70 D Total Protein 6.5 Albumin 3.3 L Urine Color Urine Appearance Urine pH Ur Specific [place] Urine Protein Urine Glucose (UA) Urine Ketones Urine Blood Urine Nitrite Urine Bilirubin Urine Urobilinogen Ur Leukocyte Esterase RPR Titer Nonreactive Hepatitis C Antibody HIV 1&2 Antibody Screen HIV P24 Antigen 04/07/17 04/07/17 04/07/17 11:42 16:39 21:43 WBC RBC Hgb Hct MCV MCH MCHC RDW Plt Count MPV Sodium Potassium Chloride Carbon Dioxide Anion Gap BUN Creatinine Creat Clearance w eGFR POC Glucometer 271 207 385 Random Glucose Calcium Total Bilirubin AST ALT Alkaline Phosphatase Total Protein Albumin Urine Color Urine Appearance Urine pH Ur Specific [place] Urine Protein Urine Glucose (UA) Urine Ketones Urine Blood Urine Nitrite Urine Bilirubin Urine Urobilinogen Ur Leukocyte Esterase RPR Titer Hepatitis C Antibody HIV 1&2 Antibody Screen HIV P24 Antigen 04/08/17 06:02 WBC RBC Hgb Hct MCV MCH MCHC RDW Plt Count MPV Sodium Potassium Chloride Carbon Dioxide Anion Gap BUN Creatinine Creat Clearance w eGFR POC Glucometer 249 Random Glucose Calcium Total Bilirubin AST ALT Alkaline Phosphatase Total Protein Albumin Urine Color Urine Appearance Urine pH Ur Specific [place] Urine Protein Urine Glucose (UA) Urine Ketones Urine Blood Urine Nitrite Urine Bilirubin Urine Urobilinogen Ur Leukocyte Esterase RPR Titer Hepatitis C Antibody HIV 1&2 Antibody Screen HIV P24 Antigen pt aox3 in nad lying in bed Assessment: 04/08/17 10:10 withdrawal sx's dm Plan: cont. detox increase fluids motrin prn insulin coverage -sliding scale
[2017-04-08] MEDS: HYDROCHLOROTHIAZIDE 25 MG TABLET (FP) PO SCH (10:15)
[2017-04-08] MEDS: PRENATAL VITAMINS W/ FOLIC ACID TABLET (FP) PO SCH (10:17)
[2017-04-08] MEDS: LISINOPRIL 10 MG TABLET (FP) PO SCH (10:17)
[2017-04-08] MEDS: amLODIPine BESYLATE 10 MG TABLET (FP) PO SCH (10:17)
[2017-04-08] MEDS: traZODone HCL 100 MG TABLET (FP) PO SCH (22:35)
[2017-04-08] MEDS: THIAMINE HCL 100 MG TABLET (FP) PO SCH (22:35)
[2017-04-08] MEDS: chlordiazePOXIDE 5 MG CAPSULE PO SCH (22:36)
[2017-04-08] MEDS: INSULIN (NOVOLOG MIX 70/30) 100 UNITS/ML MDV SQ SCH (22:39)
[2017-04-09] MEDS: chlordiazePOXIDE 5 MG CAPSULE PO SCH ×3 (05:40→17:10)
[2017-04-09] MEDS: INSULIN SLIDING SCALE (NOVOLOG) 1 VIAL SQ SCH ×4 (08:00→22:12)
[2017-04-09] MEDS ORDERED: INSULIN (NOVOLOG) ASPART 100 UNITS/ML 10ML VIAL ONE ×4 (08:05→22:09)
[2017-04-09] MEDS: PRENATAL VITAMINS W/ FOLIC ACID TABLET (FP) PO SCH (10:06)
[2017-04-09] MEDS: amLODIPine BESYLATE 10 MG TABLET (FP) PO SCH (10:07)
[2017-04-09] MEDS: HYDROCHLOROTHIAZIDE 25 MG TABLET (FP) PO SCH (10:07)
[2017-04-09] MEDS: LISINOPRIL 10 MG TABLET (FP) PO SCH (10:07)
--- NOTE | 2017-04-09 12:57 | PN ---
S Progress Note (SOAP) Subjective: ALERT,IRRITABLE,ANXIOUS,INTERRUPTED SLEEP, Objective: 04/09/17 12:55 Vital Signs Temperature 97.0 F L 04/09/17 10:31 Pulse Rate 94 H 04/09/17 10:31 Respiratory Rate 19 04/09/17 10:31 Blood Pressure 147/90 04/09/17 10:31 O2 Sat by Pulse Oximetry (%) BGM 331 Assessment: 04/09/17 12:55 WITHDRAWAL SYMPTOM Plan: CONTINUE DETOX,BGM MONITORING,WITH INSULIN COVERAGE,DISCHARGE AT 0700 AM,FOLLOW UP WITH AFTER CARE PROGRAM [facility] FILLER SHREDDER HELPER FOR DIABETIC MANAGEMENT
[2017-04-09] MEDS: traZODone HCL 100 MG TABLET (FP) PO SCH (22:03)
[2017-04-09] MEDS: chlordiazePOXIDE HCL 10 MG CAPSULE PO SCH (22:03)
[2017-04-09] MEDS: THIAMINE HCL 100 MG TABLET (FP) PO SCH (22:04)
[2017-04-09] MEDS: INSULIN (NOVOLOG MIX 70/30) 100 UNITS/ML MDV SQ SCH (22:12)
[2017-04-10] MEDS: chlordiazePOXIDE HCL 10 MG CAPSULE PO SCH (05:41)
[2017-04-10] MEDS ORDERED: INSULIN (NOVOLOG) ASPART 100 UNITS/ML 10ML VIAL ONE (06:36)
[2017-04-10] MEDS: INSULIN SLIDING SCALE (NOVOLOG) 1 VIAL SQ SCH (06:36)
[2017-04-10 06:54] VITALS: BP 150/77; PULSE 79; TEMP 98.4
--- NOTE | 2017-04-10 08:59 | DS ---
[facility] Detox Discharge Summary Admission Date: 04/06/17 Discharge Date: 04/10/17 - History Present History: Alcohol Dependence Additional Comments: FOLLOW UP WITH AFTER CARE PROGRAM ARRANGEMENT AND [employer]AL [employer] SCIENTIST FOR DIABETIC MANAGEMENT Pertinent Past History: HYPERTENSION HISTORY OF PANCREATITIS IDDM - Physical Exam Results Vital Signs: Vital Signs Temperature 98.4 F 04/10/17 06:53 Pulse Rate 79 04/10/17 06:53 Respiratory Rate 18 04/10/17 06:53 Blood Pressure 150/77 04/10/17 06:53 O2 Sat by Pulse Oximetry (%) Pertinent Admission Physical Exam Findings: WITHDRAWAL SYMPTOM - Treatment Hospital Course: Detox Protocol Followed, Detoxed Safely, Responded well, Discharged Condition Good Patient has Accepted a Rehab Referral to: DECLINED - Medication Discharge Medications: Ambulatory Orders Hydrochlorothiazide 25 mg PO DAILY 04/06/17 Lisinopril 10 mg PO DAILY 04/06/17 Lisinopril 10 mg PO DAILY 04/06/17 Trazodone HCl [Desyrel -] 100 mg PO HS 04/06/17 Trazodone HCl [Desyrel -] 100 mg PO HS #30 tablet 04/07/17 - Diagnosis (1) Alcohol dependence with uncomplicated withdrawal Status: Chronic (2) Nicotine dependence Status: Acute Qualifiers: Nicotine product type: cigarettes Substance use status: uncomplicated Qualified Code(s): F17.210 - Nicotine dependence, cigarettes, uncomplicated; F17.210 - Nicotine dependence, cigarettes, uncomplicated (3) History of pancreatitis Status: Chronic (4) Hypertension Status: Chronic Qualifiers: Hypertension type: essential hypertension (5) IDDM (insulin dependent diabetes mellitus) Status: Acute - AMA Did Patient Leave Against Medical Advice: No
== END 2017-04-10 06:55 | disposition home or self-care (01) | DRG 775 ==
LOC: YASAS 13:06 → Y6N 17:56
PROVIDERS: ADMIT Internal Medicine; ATTEND Internal Medicine
PROC: HZ2ZZZZ Detoxification Services for Substance Abuse Treatment (ICD-10-PCS; principal; 2017-04-06)
DX: F10.230 Alcohol dependence with withdrawal, uncomplicated (principal); F10.282 Alcohol dependence with alcohol-induced sleep disorder; F17.210 Nicotine dependence, cigarettes, uncomplicated; F19.24 Other psychoactive substance dependence with psychoactive substance-induced mood disorder; F34.1 Dysthymic disorder; I10 Essential (primary) hypertension; E10.9 Type 1 diabetes mellitus without complications; E66.9 Obesity, unspecified; Z68.32 Body mass index [BMI] 32.0-32.9, adult; R00.0 Tachycardia, unspecified; Z79.4 Long term (current) use of insulin; Z87.19 Personal history of other diseases of the digestive system; Z91.5 Personal history of self-harm
CPT/HCPCS: 36415; 80053; 81003; 85027; 86593; 86803; 87389; 90688; 93005; 93010; G0008

== ENCOUNTER 2017-12-24 08:51 | Inpatient (IN) | payer OTHER ==
[2017-12-24 11:02] VITALS: BMI 32.3
--- NOTE | 2017-12-24 11:26 | HP ---
CIWA Score - CIWA Score Nausea/Vomitin Muscle Tremors: 4-Moderate,w/Arms Extend Anxiety: 4-Mod. Anxious/Guarded Agitation: 0-Normal Activity Paroxysmal Sweats: No Perspiration Orientation: 1-Uncertain about Date Tacttile Disturbances: 1-Very Mild Itch/Numbness Auditory Disturbances: 1-Very Mild Visual Disturbances: 1-Very Mild Sensitivity Headache: 2-Mild CIWA-Ar Total Score: 16 Admission ROS BHS - HPI Chief Complaint: I want help, I want extermination inspector, I need it, I can't stop myself Allergies/Adverse Reactions: Allergies Allergy/AdvReac Type Severity Reaction Status Date / Time tramadol Allergy Intermediate Itching Verified 12/24/17 11:09 History of Present Illness: 42 yo gentleman here for detox from alcohol - denies seizures but does have black outs. This is one of several admissions - states was in hospital a few months ago for pancreatitis. Exam Limitations: Clinical Condition - Ebola screening Have you traveled outside of the country in the last 21 days: No Have you had contact with anyone from an Ebola affected area: No Have you been sick,other than usual withdrawal symptoms: No - Review of Systems Constitutional: Malaise, Night Sweats, Changes in sleep, Weakness EENT: reports: Blurred Vision Respiratory: reports: SOB with Exertion Cardiac: reports: No Symptoms Reported GI: reports: Nausea, Poor Appetite, Poor Fluid Intake, Indigestion, Abdominal cramping : reports: Frequency Musculoskeletal: reports: Back Pain, Muscle Pain Integumentary: reports: Dryness Neuro: reports: Headache Endocrine: reports: No Symptoms Reported Hematology: reports: No Symptoms Reported Psychiatric: reports: Judgement Intact, Mood/Affect Appropiate, Anxious Other Systems: Reviewed and Negative Patient History - Patient Medical History Hx Anemia: No Hx Asthma: No Hx Chronic Obstructive Pulmonary Disease (COPD): No Hx Cancer: No Hx Cardiac Disorders: No Hx Congestive Heart Failure: No Hx Hypertension: Yes (NONCOMPLAINT WITH MEDS) Hx Hypercholesterolemia: Yes (NO CURRENT MED) Hx Pacemaker: No HX Cerebrovascular Accident: No Hx Seizures: No Hx Dementia: No Hx Diabetes: Yes (non adherent with meds - insulin dependent) Hx Gastrointestinal Disorders: Yes (history pancreatitis) Hx Liver Disease: No Hx Genitourinary Disorders: No Hx Sexually Transmitted Disorders: No Hx Renal Disease (ESRD): No Hx Thyroid Disease: No Hx Human Immunodeficiency Virus (HIV): No (NEGATIVE HX) Hx Hepatitis C: No Hx Depression: Yes (hospitalized 2010 [facility]) Hx Suicide Attempt: Yes (2003 jump from roof) Hx Bipolar Disorder: No Hx Schizophrenia: No - Patient Surgical History Past Surgical History: Yes Hx Neurologic Surgery: No Hx Cataract Extraction: No Hx Cardiac Surgery: No Hx Lung Surgery: No Hx Breast Surgery: No Hx Breast Biopsy: No Hx Abdominal Surgery: No Hx Appendectomy: No Hx Cholecystectomy: No Hx Genitourinary Surgery: No Hx Section: No Hx Orthopedic Surgery: Yes (L tibia fx sx in 2014;R FIBULA 2014 YRS AGO) Anesthesia Reaction: No - PPD History Previous Implant?: Yes Documented Results: Negative w/proof Implanted On Prior [facility] Admission?: Yes Date: 02/09/17 Results: 0MM PPD to be Administered?: No - Reproductive History Patient is a Female of Child Bearing Age (11 -55 yrs old): No (male) - Smoking Cessation Smoking history: Current some day smoker Have you smoked in the past 12 months: Yes Aproximately how many cigarettes per day: 1 Hx Chewing Tobacco Use: No Initiated information on smoking cessation: Yes 'Breaking Loose' booklet given: 12/24/17 (give on floor) - Substance & Tx. History Hx Alcohol Use: Yes Hx Substance Use: Yes Substance Use Type: Alcohol, Cocaine Hx Substance Use Treatment: Yes (detox, rehab ) - Substances Abused Alcohol Route: Oral Frequency: Daily Amount used: VODKA- 3 pints 9 cans of 16 oz beers Age of first use: 16 Date of Last Use: 12/24/17 Cocaine Route: Smoking Frequency: Daily Amount used: 10BAGS Age of first use: 27 Date of Last Use: 12/24/17 Family Disease History - Family Disease History Family Disease History: Diabetes: Father (, hx etoh), Mother (, hx etoh), Brother (three - hx etoh), Heart Disease: Father, Mother, Brother, [place] : Father, Mother, Other: Brother, Daughter (two - ages 10 and 22) Admission Physical Exam BHS - Vital Signs Vital Signs: Vital Signs - 24 hr 12/24/17 10:57 Temperature 98.2 F Pulse Rate 68 Respiratory 19 Rate Blood Pressure 170/100 - Physical General Appearance: Yes: Nourished, Appropriately Dressed, Moderate Distress, Obese, Anxious HEENTM: Yes: EOMI, Hearing grossly Normal, Normocephalic, Normal Voice, Pharynx Normal Respiratory: Yes: Normal Breath Sounds, No Respiratory Distress Neck: Yes: No masses,lesions,Nodules, Supple Breast: Yes: Breast Exam Deferred Cardiology: Yes: Regular Rhythm, Regular Rate, Edema Abdominal: Yes: Soft, Protuberent Genitourinary: Yes: Frequency Back: Yes: Normal Inspection Musculoskeletal: Yes: full range of Motion, Gait Steady, Back pain, Muscle Pain Extremities: Yes: Normal Inspection, Normal Range of Motion, Pedal Edema (mild bilateral), Other (healed surgical scar left ankle) Neurological: Yes: Alert, Motor Strength 5/5, Normal Mood/Affect, Normal Response Integumentary: Yes: Normal Color, Dry, Warm Lymphatic: Yes: Within Normal Limits - Diagnostic (1) Alcohol dependence with uncomplicated withdrawal Current Visit: Yes Status: Chronic (2) Cocaine dependence, uncomplicated Current Visit: Yes Status: Chronic (3) IDDM (insulin dependent diabetes mellitus) Current Visit: Yes Status: Chronic (4) History of pancreatitis Current Visit: Yes Status: Chronic Comment: last episode 09/2017 (5) Hypertension Current Visit: Yes Status: Chronic Qualifiers: Hypertension type: essential hypertension Qualified Code(s): I10 - Essential (primary) hypertension (6) Obese Current Visit: Yes Status: Chronic Cleared for Admission [facility] - Detox or Rehab [facility] Level of Care: Medically Managed Detox Regimen/Protocol: Librium [facility] Breath Alcohol Content Breath Alcohol Content: 0.022 Urine Drug Screen - Results Drug Screen Negative: No Urine Drug Screen Results: JAKY-Cocaine
[2017-12-24] MEDS ORDERED: MAGNESIUM HYDROX 2400MG/30ML ORAL SUSPENSION 30 ML CUP PO PRN (11:38)
[2017-12-24] MEDS ORDERED: ACETAMINOPHEN 325 MG TABLET (FP) PO PRN (11:38)
[2017-12-24] MEDS ORDERED: guaiFENesin/D-METHORPHAN HB 10 ML UNIT-DOSE CUPS PO PRN (11:38)
[2017-12-24] MEDS ORDERED: hydrOXYzine PAMOATE 25 MG CAPSULE (FP) PO PRN (11:38)
[2017-12-24] MEDS ORDERED: MAGNESIUM CITRATE 300 ML BOTTLE PO PRN (11:38)
[2017-12-24] MEDS ORDERED: P-EPHED 60MG/TRIPROLIDI 2.5MG TABLET PO PRN (11:38)
[2017-12-24] MEDS ORDERED: MAG HYDROX/AL HYDROX/SIMETH 30 ML UNIT-DOSE CUP PO PRN (11:38)
[2017-12-24] MEDS ORDERED: LOPERAMIDE HCL 2 MG CAPSULE PO PRN (11:38)
[2017-12-24] MEDS ORDERED: MENTHOL/PHENOL 1 EACH UD MM PRN (11:38)
[2017-12-24] MEDS ORDERED: chlordiazePOXIDE HCL 25 MG CAPSULE PO PRN (12:28)
[2017-12-24] MEDS ORDERED: chlordiazePOXIDE HCL 25 MG CAPSULE PO ONE (12:30)
[2017-12-24] MEDS: amLODIPine BESYLATE 10 MG TABLET (FP) PO SCH (13:16)
[2017-12-24] MEDS: HYDROCHLOROTHIAZIDE 25 MG TABLET (FP) PO SCH (13:17)
[2017-12-24] MEDS: LISINOPRIL 20 MG TABLET (FP) PO SCH (13:17)
[2017-12-24] MEDS: IBUPROFEN 400 MG TABLET (FP) PO PRN ×2 (13:21→19:15)
--- NOTE | 2017-12-24 14:43 | EKG ---
Test Reason : Blood Pressure : / mmHG Vent. Rate : 066 BPM Atrial Rate : 066 BPM P-R Int : 144 ms QRS Dur : 110 ms QT Int : 396 ms P-R-T Axes : 046 060 063 degrees QTc Int : 415 ms NORMAL SINUS RHYTHM MINIMAL VOLTAGE CRITERIA FOR LVH, MAY BE NORMAL VARIANT BORDERLINE ECG WHEN COMPARED WITH ECG OF 06-APR-2017 18:03, NO SIGNIFICANT CHANGE WAS FOUND Confirmed by Silver Solano ([id number]) on 12/24/2017 2:42:40 PM Referred By: Moustapha Diop Confirmed By:Silver Solano
[2017-12-24] MEDS ORDERED: INSULIN (NOVOLOG) ASPART 100 UNITS/ML 10ML VIAL ONE ×2 (16:49→22:43)
[2017-12-24] MEDS: INSULIN SLIDING SCALE (NOVOLOG) 1 VIAL SQ SCH ×2 (16:50→22:44)
[2017-12-24] MEDS: chlordiazePOXIDE HCL 25 MG CAPSULE PO SCH ×2 (17:50→22:40)
[2017-12-24] MEDS ORDERED: MELATONIN 5 MG TABLETS PO PRN (22:00)
[2017-12-24 22:13] LABS: URINE APPEARANCE CLEAR; URINE BILIRUBIN NEGATIVE (<2.0 mg/dL); URINE COLOR STRAW; URINE GLUCOSE (UA) 3+ (NEGATIVE); URINE KETONE TRACE (NEGATIVE); URINE LEUK ESTERASE NEGATIVE (NEGATIVE); URINE NITRITE NEGATIVE (NEGATIVE); URINE PROTEIN NEGATIVE (NEGATIVE); URINE UROBILINOGEN NEGATIVE mg/dL (0.2-1.0)
[2017-12-24] MEDS: THIAMINE HCL 100 MG TABLET (FP) PO SCH (22:39)
[2017-12-24] MEDS: INSULIN (NOVOLOG MIX 70/30) 100 UNITS/ML MDV SQ SCH (22:40)
[2017-12-25] MEDS: chlordiazePOXIDE HCL 25 MG CAPSULE PO SCH ×4 (05:59→22:53)
[2017-12-25] MEDS ORDERED: INSULIN (NOVOLOG) ASPART 100 UNITS/ML 10ML VIAL ONE ×3 (07:53→16:27)
[2017-12-25] MEDS: INSULIN SLIDING SCALE (NOVOLOG) 1 VIAL SQ SCH ×3 (07:56→16:47)
--- NOTE | 2017-12-25 08:02 | CONSULT ---
[facility] Psychiatric Consult - Data Date of interview: 12/25/17 Admission source: Self-referred Identifying data: Mr Choi is a 42 years old single Black male, father of 3 children, unemployed on public assistance, homeless seeking detox treatment for alcohol and cocaine Substance Abuse History: Reports history of alcohol and cocaine use. Refer to addiction counselor's note for further information Medical History: Significant for diabetes mellitus, obesity, hypertension, dyslipidemia and low back pain, history of orthosurgery for fracture of left tibia (2014) and right fibula (2005). Smokes cigarettes daily Psychiatric History: Patient's history is inconsistent with accounts from previous admissions to this facility. Reports that in 2003, he was amitted to a hospital after trying to jump from a roof in the context of alcohol and cocaine intoxication. He has no recollection of what unit he was on but told technical proposal writer that he was there for 5 days and was detoxed. Reports history of 2 psychiatric admissions for depression both to [facility] in 2009 & 2011. Denies ever received OPD care and he is not seeing a psychiatrist at present. On 2 of his previous admisions in this facility, he was prescribed Ambien one time and Trazadone the other time. Currently, reports feeling anxious and sleeping poorly. Requests that Trazadone be oerdered for insomnia Physical/Sexual Abuse/Trauma History: Denies history of emotional, physical or sexual abuse as well as DV relationship. Nomilitary service Additional Comment: Reports history of multiple previous arrests including one feony conviction. Denies being on parole/probation at present Mental Status Exam - Mental Status Exam Alert and Oriented to: Time, Place, Person Cognitive Function: Fair Patient Appearance: Well Groomed Mood: Anxious Affect: Appropriate Speech Pattern: Clear Voice Loudness: Normal Thought Process: Intact, Goal Oriented Thought Disorder: Not Present Hallucinations: Denies Suicidal Ideation: Denies Homicidal Ideation: Denies Insight/Judgement: Fair Sleep: Poorly Appetite: Good Muscle strength/Tone: Normal Gait/Station: Normal Psychiatric Findings - Problem List ([place] 1, 2,3) (1) Substance-induced anxiety disorder Current Visit: Yes Status: Acute (2) Substance-induced sleep disorder Current Visit: Yes Status: Acute (3) Alcohol dependence with uncomplicated withdrawal Current Visit: Yes Status: Acute (4) Cocaine dependence, uncomplicated Current Visit: Yes Status: Acute (5) Nicotine dependence Current Visit: No Status: Chronic Qualifiers: Nicotine product type: cigarettes Substance use status: uncomplicated Qualified Code(s): F17.210 - Nicotine dependence, cigarettes, uncomplicated (6) History of pancreatitis Current Visit: Yes Status: Chronic Comment: last episode 09/2017 (7) Hypertension Current Visit: Yes Status: Chronic Qualifiers: Hypertension type: essential hypertension Qualified Code(s): I10 - Essential (primary) hypertension (8) IDDM (insulin dependent diabetes mellitus) Current Visit: Yes Status: Chronic (9) Obese Current Visit: Yes Status: Chronic (10) Dyslipidemia Current Visit: Yes Status: Acute - Initial Treatment Plan Initial Treatment Plan: 1) Start Trazadone 100 mg po HS. 2) Continue inpatient detoxification
[2017-12-25] MEDS: IBUPROFEN 400 MG TABLET (FP) PO PRN (09:36)
[2017-12-25 10:16] LABS: HEMATOCRIT 41.1 % (35.4-49); HEMOGLOBIN 13.5 GM/dL (11.7-16.9); MCH 28.5 pg (25.7-33.7); MCHC 32.8 g/dl (32.0-35.9); MEAN PLT VOLUME 10.4 fl (7.5-11.1); PLATELET COUNT 234 K/MM3 (134-434); RBC 4.72 M/mm3 (4.00-5.60); RDW 13.5 % (11.9-15.9); WHITE BLOOD COUNT 5.4 K/mm3 (4.0-10.0)
[2017-12-25 10:26] LABS: ALBUMIN 3.7 g/dl (3.4-5.0); ANION GAP 9 (8-16); BILIRUBIN,TOTAL 0.3 mg/dL (0.2-1.0); BLOOD UREA NITROGEN 15 mg/dL (7-18); CALCIUM 9.4 mg/dL (8.5-10.1); CHLORIDE 104 mmol/L (98-107); CO2 26 mmol/L (21-32); CREATININE 0.7 mg/dL (0.7-1.3); POTASSIUM 4.1 mmol/L (3.5-5.1); SGOT/AST 16 U/L (15-37); SGPT/ALT 22 U/L (12-78); SODIUM 139 mmol/L (136-145)
[2017-12-25 10:27] LABS: ALK PHOS 60 U/L (45-117)
[2017-12-25] MEDS: PRENATAL VITAMINS W/ FOLIC ACID TABLET (FP) PO SCH (10:50)
[2017-12-25] MEDS: amLODIPine BESYLATE 10 MG TABLET (FP) PO SCH (10:50)
[2017-12-25] MEDS: HYDROCHLOROTHIAZIDE 25 MG TABLET (FP) PO SCH (10:50)
[2017-12-25] MEDS: LISINOPRIL 20 MG TABLET (FP) PO SCH (10:50)
--- NOTE | 2017-12-25 11:03 | PN ---
[facility] CIWA - CIWA Score Nausea/Vomitin-Mild Nausea/No Vomiting Muscle Tremors: 4-Moderate,w/Arms Extend Anxiety: 4-Mod. Anxious/Guarded Agitation: 4-Moderately Restless Paroxysmal Sweats: 1-Minimal Palms Moist Orientation: 0-Oriented Tacttile Disturbances: 0-None Auditory Disturbances: 0-None Visual Disturbances: 0-None Headache: 0-None Present CIWA-Ar Total Score: 14 S Progress Note (SOAP) Subjective: tremor sweat gi distress trouble sleep at night stated chronic mai pain requested percocet for pain health teaching on risks of chronic percocet usage Objective: 12/25/17 10:58 Vital Signs Temperature 97.9 F 12/25/17 09:18 Pulse Rate 68 12/25/17 09:18 Respiratory Rate 18 12/25/17 09:18 Blood Pressure 140/77 12/25/17 09:18 O2 Sat by Pulse Oximetry (%) Laboratory Last Values WBC 5.4 K/mm3 (4.0-10.0) 12/25/17 07:20 RBC 4.72 M/mm3 (4.00-5.60) 12/25/17 07:20 Hgb 13.5 GM/dL (11.7-16.9) 12/25/17 07:20 Hct 41.1 % (35.4-49) 12/25/17 07:20 MCV 87.0 fl (80-96) 12/25/17 07:20 MCH 28.5 pg (25.7-33.7) 12/25/17 07:20 MCHC 32.8 g/dl (32.0-35.9) 12/25/17 07:20 RDW 13.5 % (11.9-15.9) 12/25/17 07:20 Plt Count 234 K/MM3 (134-434) 12/25/17 07:20 MPV 10.4 fl (7.5-11.1) 12/25/17 07:20 Sodium 139 mmol/L (136-145) 12/25/17 07:20 Potassium 4.1 mmol/L (3.5-5.1) 12/25/17 07:20 Chloride 104 mmol/L (98-107) 12/25/17 07:20 Carbon Dioxide 26 mmol/L (21-32) 12/25/17 07:20 Anion Gap 9 (8-16) 12/25/17 07:20 BUN 15 mg/dL (7-18) 12/25/17 07:20 Creatinine 0.7 mg/dL (0.7-1.3) 12/25/17 07:20 Creat Clearance w eGFR > 60 (>60) 12/25/17 07:20 POC Glucometer 292 UNITS (80-120) 12/25/17 05:59 Calcium 9.4 mg/dL (8.5-10.1) 12/25/17 07:20 Total Bilirubin 0.3 mg/dL (0.2-1.0) 12/25/17 07:20 AST 16 U/L (15-37) 12/25/17 07:20 ALT 22 U/L (12-78) 12/25/17 07:20 Alkaline Phosphatase 60 U/L (45-117) 12/25/17 07:20 Total Protein 7.0 g/dl (6.4-8.2) 12/25/17 07:20 Albumin 3.7 g/dl (3.4-5.0) 12/25/17 07:20 Urine Color Straw 12/24/17 14:58 Urine Appearance Clear 12/24/17 14:58 Urine pH 6.0 (5.0-8.0) 12/24/17 14:58 Ur Specific [place] 1.025 (1.001-1.035) 12/24/17 14:58 Urine Protein Negative (NEGATIVE) 12/24/17 14:58 Urine Glucose (UA) 3+ (NEGATIVE) H 12/24/17 14:58 Urine Ketones Trace (NEGATIVE) H 12/24/17 14:58 Urine Blood Negative (NEGATIVE) 12/24/17 14:58 Urine Nitrite Negative (NEGATIVE) 12/24/17 14:58 Urine Bilirubin Negative (<2.0 mg/dL) 12/24/17 14:58 Urine Urobilinogen Negative mg/dL (0.2-1.0) 12/24/17 14:58 Ur Leukocyte Esterase Negative (NEGATIVE) 12/24/17 14:58 RPR Titer Nonreactive (NONREACTIVE) 12/25/17 07:20 HIV 1&2 Antibody Screen Negative 12/25/17 07:20 HIV P24 Antigen Negative 12/25/17 07:20 lab noted Assessment: 12/25/17 11:03 withdrawal sx requested pain management (percocet) Plan: continue detox lidocaine patch to the back and baclofen tid
[2017-12-25] MEDS ORDERED: BACLOFEN 10 MG TABLET (FP) PO PRN (11:09)
[2017-12-25] MEDS ORDERED: IBUPROFEN 600 MG TABLET (FP) PO PRN (11:11)
[2017-12-25 11:22] LABS: GLUCOSE,RANDOM 301 mg/dL (74-106)
[2017-12-25] MEDS: LIDOCAINE 5% TOPICAL PATCH TP SCH (12:00)
[2017-12-25] MEDS: THIAMINE HCL 100 MG TABLET (FP) PO SCH (22:50)
[2017-12-25] MEDS: traZODone HCL 100 MG TABLET (FP) PO SCH (22:50)
[2017-12-25] MEDS: LIDOCAINE PATCH REMOVAL MC SCH (22:52)
[2017-12-25] MEDS: INSULIN (NOVOLOG MIX 70/30) 100 UNITS/ML MDV SQ SCH (22:52)
[2017-12-26] MEDS ORDERED: INSULIN (NOVOLOG) ASPART 100 UNITS/ML 10ML VIAL ONE ×3 (00:02→11:39)
[2017-12-26] MEDS: INSULIN SLIDING SCALE (NOVOLOG) 1 VIAL SQ SCH ×5 (00:07→22:28)
[2017-12-26] MEDS: chlordiazePOXIDE HCL 25 MG CAPSULE PO SCH ×2 (05:38→10:29)
[2017-12-26] MEDS: amLODIPine BESYLATE 10 MG TABLET (FP) PO SCH (10:28)
[2017-12-26] MEDS: HYDROCHLOROTHIAZIDE 25 MG TABLET (FP) PO SCH (10:28)
[2017-12-26] MEDS: PRENATAL VITAMINS W/ FOLIC ACID TABLET (FP) PO SCH (10:28)
[2017-12-26] MEDS: LISINOPRIL 20 MG TABLET (FP) PO SCH (10:29)
[2017-12-26] MEDS: CYCLOBENZAPRINE HCL 10 MG TABLET (FP) PO PRN ×2 (10:30→22:31)
[2017-12-26] MEDS: LIDOCAINE 5% TOPICAL PATCH TP SCH (10:32)
--- NOTE | 2017-12-26 11:25 | PN ---
S CIWA - CIWA Score Nausea/Vomitin Muscle Tremors: 3 Anxiety: 2 Agitation: 2 Paroxysmal Sweats: 1-Minimal Palms Moist Orientation: 0-Oriented Tacttile Disturbances: 1-Very Mild Itch/Numbness Auditory Disturbances: 1-Very Mild Visual Disturbances: 0-None Headache: 2-Mild CIWA-Ar Total Score: 15 BHS Progress Note (SOAP) Subjective: alert,irritable,anxious,interrupted sleep,tremor Objective: 12/26/17 11:24 Vital Signs Temperature 98 F 12/26/17 10:06 Pulse Rate 95 H 12/26/17 10:06 Respiratory Rate 18 12/26/17 10:06 Blood Pressure 135/83 12/26/17 10:06 O2 Sat by Pulse Oximetry (%) Laboratory Last Values WBC 5.4 K/mm3 (4.0-10.0) 12/25/17 07:20 RBC 4.72 M/mm3 (4.00-5.60) 12/25/17 07:20 Hgb 13.5 GM/dL (11.7-16.9) 12/25/17 07:20 Hct 41.1 % (35.4-49) 12/25/17 07:20 MCV 87.0 fl (80-96) 12/25/17 07:20 MCH 28.5 pg (25.7-33.7) 12/25/17 07:20 MCHC 32.8 g/dl (32.0-35.9) 12/25/17 07:20 RDW 13.5 % (11.9-15.9) 12/25/17 07:20 Plt Count 234 K/MM3 (134-434) 12/25/17 07:20 MPV 10.4 fl (7.5-11.1) 12/25/17 07:20 Sodium 139 mmol/L (136-145) 12/25/17 07:20 Potassium 4.1 mmol/L (3.5-5.1) 12/25/17 07:20 Chloride 104 mmol/L (98-107) 12/25/17 07:20 Carbon Dioxide 26 mmol/L (21-32) 12/25/17 07:20 Anion Gap 9 (8-16) 12/25/17 07:20 BUN 15 mg/dL (7-18) 12/25/17 07:20 Creatinine 0.7 mg/dL (0.7-1.3) 12/25/17 07:20 Creat Clearance w eGFR > 60 (>60) 12/25/17 07:20 POC Glucometer 296 UNITS (80-120) 12/26/17 07:09 Random Glucose 301 mg/dL (74-106) H* D 12/25/17 07:20 Calcium 9.4 mg/dL (8.5-10.1) 12/25/17 07:20 Total Bilirubin 0.3 mg/dL (0.2-1.0) 12/25/17 07:20 AST 16 U/L (15-37) 12/25/17 07:20 ALT 22 U/L (12-78) 12/25/17 07:20 Alkaline Phosphatase 60 U/L (45-117) 12/25/17 07:20 Total Protein 7.0 g/dl (6.4-8.2) 12/25/17 07:20 Albumin 3.7 g/dl (3.4-5.0) 12/25/17 07:20 Urine Color Straw 12/24/17 14:58 Urine Appearance Clear 12/24/17 14:58 Urine pH 6.0 (5.0-8.0) 12/24/17 14:58 Ur Specific [place] 1.025 (1.001-1.035) 12/24/17 14:58 Urine Protein Negative (NEGATIVE) 12/24/17 14:58 Urine Glucose (UA) 3+ (NEGATIVE) H 12/24/17 14:58 Urine Ketones Trace (NEGATIVE) H 12/24/17 14:58 Urine Blood Negative (NEGATIVE) 12/24/17 14:58 Urine Nitrite Negative (NEGATIVE) 12/24/17 14:58 Urine Bilirubin Negative (<2.0 mg/dL) 12/24/17 14:58 Urine Urobilinogen Negative mg/dL (0.2-1.0) 12/24/17 14:58 Ur Leukocyte Esterase Negative (NEGATIVE) 12/24/17 14:58 RPR Titer Nonreactive (NONREACTIVE) 12/25/17 07:20 HIV 1&2 Antibody Screen Negative 12/25/17 07:20 HIV P24 Antigen Negative 12/25/17 07:20 Assessment: 12/26/17 11:31 withdrawal symptom Plan: continue detox,bgm monitoring with insulin coverage
[2017-12-26] MEDS: chlordiazePOXIDE 5 MG CAPSULE PO SCH ×2 (17:21→22:24)
[2017-12-26] MEDS: traZODone HCL 100 MG TABLET (FP) PO SCH (22:24)
[2017-12-26] MEDS: THIAMINE HCL 100 MG TABLET (FP) PO SCH (22:24)
[2017-12-26] MEDS: INSULIN (NOVOLOG MIX 70/30) 100 UNITS/ML MDV SQ SCH (22:25)
[2017-12-26] MEDS: LIDOCAINE PATCH REMOVAL MC SCH (22:25)
[2017-12-27] MEDS: chlordiazePOXIDE 5 MG CAPSULE PO SCH ×2 (06:21→10:45)
[2017-12-27] MEDS ORDERED: INSULIN (NOVOLOG) ASPART 100 UNITS/ML 10ML VIAL ONE ×2 (07:52→16:48)
[2017-12-27] MEDS: INSULIN SLIDING SCALE (NOVOLOG) 1 VIAL SQ SCH ×4 (07:52→23:30)
[2017-12-27] MEDS: amLODIPine BESYLATE 10 MG TABLET (FP) PO SCH (10:45)
[2017-12-27] MEDS: LISINOPRIL 20 MG TABLET (FP) PO SCH (10:45)
[2017-12-27] MEDS: AMMONIUM LACTATE 12% LOTION 225 GM BOTTLE TP SCH ×2 (10:45→22:28)
[2017-12-27] MEDS: PRENATAL VITAMINS W/ FOLIC ACID TABLET (FP) PO SCH (10:45)
[2017-12-27] MEDS: HYDROCHLOROTHIAZIDE 25 MG TABLET (FP) PO SCH (10:45)
[2017-12-27] MEDS: LIDOCAINE 5% TOPICAL PATCH TP SCH (10:46)
[2017-12-27] MEDS: CYCLOBENZAPRINE HCL 10 MG TABLET (FP) PO PRN ×2 (10:46→22:28)
--- NOTE | 2017-12-27 12:18 | PN ---
S Progress Note (SOAP) Subjective: alert,irritable,anxious,interrupted sleep Objective: 12/27/17 12:16 Vital Signs Temperature 98.3 F 12/27/17 09:13 Pulse Rate 96 H 12/27/17 09:13 Respiratory Rate 18 12/27/17 09:13 Blood Pressure 148/85 12/27/17 09:13 O2 Sat by Pulse Oximetry (%) bgm high Assessment: 12/27/17 12:16 withdrawal symptom Plan: continue detox,bgm monitoring with insulin coverage,hba1c,possible discharge in am
[2017-12-27] MEDS ORDERED: INSULIN (NOVOLOG) ASPART 100 UNITS/ML 10ML VIAL SQ ONE (12:22)
[2017-12-27] MEDS: chlordiazePOXIDE HCL 10 MG CAPSULE PO SCH ×2 (17:21→22:28)
[2017-12-27] MEDS: traZODone HCL 100 MG TABLET (FP) PO SCH (22:28)
[2017-12-27] MEDS: THIAMINE HCL 100 MG TABLET (FP) PO SCH (22:28)
[2017-12-27] MEDS: INSULIN (NOVOLOG MIX 70/30) 100 UNITS/ML MDV SQ SCH (22:31)
[2017-12-27] MEDS: LIDOCAINE PATCH REMOVAL MC SCH (23:30)
[2017-12-28] MEDS: chlordiazePOXIDE HCL 10 MG CAPSULE PO SCH ×2 (06:15→10:33)
[2017-12-28] MEDS: CYCLOBENZAPRINE HCL 10 MG TABLET (FP) PO PRN (06:18)
[2017-12-28] MEDS: INSULIN SLIDING SCALE (NOVOLOG) 1 VIAL SQ SCH (08:33)
[2017-12-28] MEDS ORDERED: INSULIN (NOVOLOG) ASPART 100 UNITS/ML 10ML VIAL ONE (08:47)
[2017-12-28 09:15] VITALS: TEMP 98.4
[2017-12-28 09:42] VITALS: BP 134/77; PULSE 100
--- NOTE | 2017-12-28 10:08 | PN ---
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
--- NOTE | 2017-12-28 10:21 | DS ---
[facility] Detox Discharge Summary Admission Date: 12/24/17 Discharge Date: 12/28/17 - History Present History: Alcohol Dependence, Cocaine Dependence Additional Comments: FOLLOW UP WITH AFTER CARE PROGRAM ARRANGEMENT,DIET MODIFICATION REINFORCED, PATIENT UNDERSTOOD,FOLLOWED UP WITH PCP AND PHYSICAL TESTING SUPERVISOR Pertinent Past History: HYPERTENSION IDDM - Physical Exam Results Vital Signs: Vital Signs Temperature 98.4 F 12/28/17 09:15 Pulse Rate 100 H 12/28/17 09:41 Respiratory Rate 18 12/28/17 09:15 Blood Pressure 134/77 12/28/17 09:41 O2 Sat by Pulse Oximetry (%) Pertinent Admission Physical Exam Findings: WITHDRAWAL SIGNS AND SYMPTOM Vital Signs Temperature 98.4 F 12/28/17 09:15 Pulse Rate 100 H 12/28/17 09:41 Respiratory Rate 18 12/28/17 09:15 Blood Pressure 134/77 12/28/17 09:41 O2 Sat by Pulse Oximetry (%) Laboratory Last Values WBC 5.4 K/mm3 (4.0-10.0) 12/25/17 07:20 RBC 4.72 M/mm3 (4.00-5.60) 12/25/17 07:20 Hgb 13.5 GM/dL (11.7-16.9) 12/25/17 07:20 Hct 41.1 % (35.4-49) 12/25/17 07:20 MCV 87.0 fl (80-96) 12/25/17 07:20 MCH 28.5 pg (25.7-33.7) 12/25/17 07:20 MCHC 32.8 g/dl (32.0-35.9) 12/25/17 07:20 RDW 13.5 % (11.9-15.9) 12/25/17 07:20 Plt Count 234 K/MM3 (134-434) 12/25/17 07:20 MPV 10.4 fl (7.5-11.1) 12/25/17 07:20 Sodium 139 mmol/L (136-145) 12/25/17 07:20 Potassium 4.1 mmol/L (3.5-5.1) 12/25/17 07:20 Chloride 104 mmol/L (98-107) 12/25/17 07:20 Carbon Dioxide 26 mmol/L (21-32) 12/25/17 07:20 Anion Gap 9 (8-16) 12/25/17 07:20 BUN 15 mg/dL (7-18) 12/25/17 07:20 Creatinine 0.7 mg/dL (0.7-1.3) 12/25/17 07:20 Creat Clearance w eGFR > 60 (>60) 12/25/17 07:20 POC Glucometer 388 UNITS (80-120) 12/28/17 06:15 Random Glucose 301 mg/dL (74-106) H* D 12/25/17 07:20 Hemoglobin A1c % 11.1 % (4.8-6.0) H 12/27/17 12:00 Calcium 9.4 mg/dL (8.5-10.1) 12/25/17 07:20 Total Bilirubin 0.3 mg/dL (0.2-1.0) 12/25/17 07:20 AST 16 U/L (15-37) 12/25/17 07:20 ALT 22 U/L (12-78) 12/25/17 07:20 Alkaline Phosphatase 60 U/L (45-117) 12/25/17 07:20 Total Protein 7.0 g/dl (6.4-8.2) 12/25/17 07:20 Albumin 3.7 g/dl (3.4-5.0) 12/25/17 07:20 Urine Color Straw 12/24/17 14:58 Urine Appearance Clear 12/24/17 14:58 Urine pH 6.0 (5.0-8.0) 12/24/17 14:58 Ur Specific [place] 1.025 (1.001-1.035) 12/24/17 14:58 Urine Protein Negative (NEGATIVE) 12/24/17 14:58 Urine Glucose (UA) 3+ (NEGATIVE) H 12/24/17 14:58 Urine Ketones Trace (NEGATIVE) H 12/24/17 14:58 Urine Blood Negative (NEGATIVE) 12/24/17 14:58 Urine Nitrite Negative (NEGATIVE) 12/24/17 14:58 Urine Bilirubin Negative (<2.0 mg/dL) 12/24/17 14:58 Urine Urobilinogen Negative mg/dL (0.2-1.0) 12/24/17 14:58 Ur Leukocyte Esterase Negative (NEGATIVE) 12/24/17 14:58 RPR Titer Nonreactive (NONREACTIVE) 12/25/17 07:20 HIV 1&2 Antibody Screen Negative 12/25/17 07:20 HIV P24 Antigen Negative 12/25/17 07:20 - Treatment Hospital Course: Detox Protocol Followed, Detoxed Safely, Responded well, Discharged Condition Good, Rehab Referral Accepted Patient has Accepted a Rehab Referral to: [facility] - Medication Discharge Medications: Ambulatory Orders Lisinopril 20 mg PO DAILY 04/06/17 traZODone HCL [Desyrel -] 100 mg PO HS 04/06/17 traZODone HCL [Desyrel -] 100 mg PO HS #30 tablet 12/25/17 Amlodipine Besylate [Norvasc -] 10 mg PO DAILY #30 tablet 12/28/17 Hydrochlorothiazide 25 mg PO DAILY #30 tablet 12/28/17 Insulin (Novolog 70/30) [Novolog Mix 70/30 Vial -] 20 units SQ HS #1 vial Insulin Sliding Scale [Novolog Vial Sliding Scale -] 1 vial SQ ACHS #1 units Lisinopril [Prinivil] 20 mg PO DAILY #30 tablet 12/28/17 - Diagnosis (1) Alcohol dependence with uncomplicated withdrawal Current Visit: Yes Status: Acute (2) Cocaine dependence, uncomplicated Current Visit: Yes Status: Acute (3) History of pancreatitis Current Visit: Yes Status: Chronic (4) Hypertension Current Visit: Yes Status: Chronic Qualifiers: Hypertension type: essential hypertension Qualified Code(s): I10 - Essential (primary) hypertension (5) IDDM (insulin dependent diabetes mellitus) Current Visit: Yes Status: Chronic - AMA Did Patient Leave Against Medical Advice: No
[2017-12-28] MEDS: LISINOPRIL 20 MG TABLET (FP) PO SCH (10:33)
[2017-12-28] MEDS: AMMONIUM LACTATE 12% LOTION 225 GM BOTTLE TP SCH (10:33)
[2017-12-28] MEDS: LIDOCAINE 5% TOPICAL PATCH TP SCH (10:33)
[2017-12-28] MEDS: PRENATAL VITAMINS W/ FOLIC ACID TABLET (FP) PO SCH (10:33)
[2017-12-28] MEDS: HYDROCHLOROTHIAZIDE 25 MG TABLET (FP) PO SCH (10:33)
[2017-12-28] MEDS: amLODIPine BESYLATE 10 MG TABLET (FP) PO SCH (10:33)
== END 2017-12-28 11:45 | disposition home or self-care (01) | DRG 774 ==
LOC: YASAS 08:51 → Y6N 12:00
PROVIDERS: ADMIT Surgery; ATTEND Surgery
PROC: HZ2ZZZZ Detoxification Services for Substance Abuse Treatment (ICD-10-PCS; principal; 2017-12-24)
DX: F10.230 Alcohol dependence with withdrawal, uncomplicated (principal); F14.20 Cocaine dependence, uncomplicated; F19.280 Other psychoactive substance dependence with psychoactive substance-induced anxiety disorder; F19.282 Other psychoactive substance dependence with psychoactive substance-induced sleep disorder; F32.9 Major depressive disorder, single episode, unspecified; E78.5 Hyperlipidemia, unspecified; E10.9 Type 1 diabetes mellitus without complications; Z79.4 Long term (current) use of insulin; Z87.19 Personal history of other diseases of the digestive system; E66.9 Obesity, unspecified; Z68.32 Body mass index [BMI] 32.0-32.9, adult; Z91.5 Personal history of self-harm; Z88.8 Allergy status to other drugs, medicaments and biological substances
CPT/HCPCS: 36415; 80053; 81003; 82962; 83036; 85027; 86593; 87389; 93005; 93010; J0475

== ENCOUNTER 2018-03-16 14:27 | Inpatient (IN) | payer OTHER ==
[2018-03-16 14:56] VITALS: BMI 32.3
--- NOTE | 2018-03-16 17:32 | HP ---
CIWA Score - CIWA Score Nausea/Vomitin-No Nausea/No Vomiting Muscle Tremors: 2 Anxiety: 3 Agitation: 3 Paroxysmal Sweats: 2 Orientation: 0-Oriented Tacttile Disturbances: 0-None Auditory Disturbances: 0-None Visual Disturbances: 0-None Headache: 0-None Present CIWA-Ar Total Score: 10 Admission ROS BHS - HPI Chief Complaint: alcohol withdrawal symptoms Allergies/Adverse Reactions: Allergies Allergy/AdvReac Type Severity Reaction Status Date / Time tramadol Allergy Severe Itching Verified 03/16/18 16:43 History of Present Illness: 42 yo male with hx of nicotine, alcohol, crack/cocaine dependence is here seeking detox. Last detox [facility] 12/24/17 -12/28/17. Patient recently discharged from [facility] 03/15/18 fir hyperglycemia. PMHX: DM II, HTN, chronic low back pain, (R) knee OA, depression, anxiety. Denies suicidal / homicidal ideation. Reports hx suicide attempt in 2003. Denies hx or seizures, reports hx of frequent blackouts with last episode one year ago. Longest period of sobriety five months while in the [employer] 2003. Exam Limitations: No Limitations - Ebola screening Have you traveled outside of the country in the last 21 days: No Have you had contact with anyone from an Ebola affected area: No Have you been sick,other than usual withdrawal symptoms: No - Review of Systems Constitutional: Diaphoresis, Weakness, Unintentional Wgt. Loss EENT: reports: No Symptoms Reported Respiratory: reports: No Symptoms reported Cardiac: reports: No Symptoms Reported GI: reports: Poor Fluid Intake, Indigestion (reflux) : reports: Frequency Musculoskeletal: reports: Joint Pain (right knee) Integumentary: reports: No Symptoms Reported Neuro: reports: Numbness (both feet) Endocrine: reports: Increased Thirst Hematology: reports: No Symptoms Reported Psychiatric: reports: Anxious, Depressed Other Systems: Reviewed and Negative Patient History - Patient Medical History Hx Anemia: No Hx Asthma: No Hx Chronic Obstructive Pulmonary Disease (COPD): No Hx Cancer: No Hx Cardiac Disorders: No Hx Congestive Heart Failure: No Hx Hypertension: Yes Hx Hypercholesterolemia: Yes (NO CURRENT MED) Hx Pacemaker: No HX Cerebrovascular Accident: No Hx Seizures: No Hx Dementia: No Hx Diabetes: Yes (IDDM) Hx Gastrointestinal Disorders: No Hx Liver Disease: No Hx Genitourinary Disorders: No Hx Sexually Transmitted Disorders: No Hx Renal Disease (ESRD): No Hx Thyroid Disease: No Hx Human Immunodeficiency Virus (HIV): No (NEGATIVE HX) Hx Hepatitis C: No Hx Depression: Yes Hx Suicide Attempt: No Hx Bipolar Disorder: No Hx Schizophrenia: No - Patient Surgical History Past Surgical History: Yes Hx Neurologic Surgery: No Hx Cataract Extraction: No Hx Cardiac Surgery: No Hx Lung Surgery: No Hx Breast Surgery: No Hx Breast Biopsy: No Hx Abdominal Surgery: No Hx Appendectomy: No Hx Cholecystectomy: No Hx Genitourinary Surgery: No Hx Section: No Hx Orthopedic Surgery: Yes (L tibia fx sx in 2014) Anesthesia Reaction: No - PPD History Previous Implant?: Yes Documented Results: Negative w/proof Implanted On Prior [facility] Admission?: Yes Date: 02/09/17 Results: 0 mm PPD to be Administered?: Yes - Smoking Cessation Smoking history: Current some day smoker Have you smoked in the past 12 months: Yes Aproximately how many cigarettes per day: 3 Hx Chewing Tobacco Use: No Initiated information on smoking cessation: Yes 'Breaking Loose' booklet given: 03/16/18 - Substance & Tx. History Hx Alcohol Use: Yes Hx Substance Use: Yes Substance Use Type: Alcohol, Cocaine Hx Substance Use Treatment: Yes (Last detox [facility] 12/24/17 -12/28/17) - Substances Abused Crack Route: Smoking Frequency: Daily Amount used: $60 Age of first use: 27 Date of Last Use: 03/14/18 Alcohol-beer/vodka Route: Oral Frequency: Daily Amount used: 1-6 pt./2 pts. Age of first use: 16 Date of Last Use: 03/15/18 Family Disease History - Family Disease History Family Disease History: Diabetes: Father (, hx etoh), Mother (, hx etoh), Brother (three - hx etoh), Heart Disease: Father, Mother, Brother, [place] : Father, Mother, Other: Brother, Daughter (two - ages 10 and 22) Admission Physical Exam S - Vital Signs Vital Signs: Vital Signs - 24 hr 03/16/18 14:55 Temperature 98.7 F Pulse Rate 96 H Respiratory 18 Rate Blood Pressure 141/82 - Physical General Appearance: Yes: Disheveled, Mild Distress, Obese, Sweating, Anxious HEENTM: Yes: EOMI, Hearing grossly Normal, Normal ENT Inspection, Normocephalic , Normal Voice, DIONICIO, Pharynx Normal, Tm's normal, Microcephalic Respiratory: Yes: Chest Non-Tender, Normal Breath Sounds, No Respiratory Distress, No Accessory Muscle Use Neck: Yes: Within Normal Limits Breast: Yes: Breast Exam Deferred Cardiology: Yes: Regular Rhythm, Regular Rate Abdominal: Yes: Normal Bowel Sounds, Non Tender, Soft, Protuberent Genitourinary: Yes: Within Normal Limits Back: Yes: Normal Inspection Extremities: Yes: Normal Capillary Refill, Normal Inspection, Normal Range of Motion, Non-Tender Neurological: Yes: veneer sample maker II-XII NML intact, Fully Oriented, Alert, Motor Strength 5/5, Depressed Affect Integumentary: Yes: Normal Color, Warm, Diaphoresis Lymphatic: Yes: Within Normal Limits - Addiitonal Findings: Patient with hx of hyperglycemia, reports no follow up with primary care provider while in the community. Patient educated on the importance to follow up with primary care upon discharge. - Diagnostic (1) Alcohol dependence with uncomplicated withdrawal Current Visit: Yes Status: Acute (2) Cocaine dependence, uncomplicated Current Visit: Yes Status: Acute (3) Hypertension Current Visit: Yes Status: Chronic Qualifiers: Hypertension type: essential hypertension Qualified Code(s): I10 - Essential (primary) hypertension (4) Nicotine dependence Current Visit: Yes Status: Chronic Qualifiers: Nicotine product type: cigarettes Substance use status: uncomplicated Qualified Code(s): F17.210 - Nicotine dependence, cigarettes, uncomplicated (5) Obese Current Visit: Yes Status: Chronic (6) Depressed Current Visit: Yes Status: Suspected Qualifiers: Depression Type: dysthymia Qualified Code(s): F34.1 - Dysthymic disorder (7) Type 2 diabetes mellitus Current Visit: Yes Status: Chronic Qualifiers: Diabetes mellitus director digital catalogue insulin use: with snf use Diabetes mellitus complication status: without complication Qualified Code(s): E11.9 - Type 2 diabetes mellitus without complications Cleared for Admission S - Detox or Rehab [facility] Level of Care: Medically Managed Detox Regimen/Protocol: Librium [facility] Breath Alcohol Content Breath Alcohol Content: 0 Urine Drug Screen - Results Drug Screen Negative: No Urine Drug Screen Results: JAKY-Cocaine
[2018-03-16] MEDS ORDERED: MENTHOL/PHENOL 1 EACH UD MM PRN (17:41)
[2018-03-16] MEDS ORDERED: LOPERAMIDE HCL 2 MG CAPSULE PO PRN (17:41)
[2018-03-16] MEDS ORDERED: MAG HYDROX/AL HYDROX/SIMETH 30 ML UNIT-DOSE CUP PO PRN (17:41)
[2018-03-16] MEDS ORDERED: NICOTINE POLACRILEX 2 MG GUM BC PRN (17:41)
[2018-03-16] MEDS ORDERED: ACETAMINOPHEN 325 MG TABLET (FP) PO PRN (17:41)
[2018-03-16] MEDS ORDERED: MAGNESIUM CITRATE 300 ML BOTTLE PO PRN (17:41)
[2018-03-16] MEDS ORDERED: guaiFENesin/D-METHORPHAN HB 10 ML UNIT-DOSE CUPS PO PRN (17:41)
[2018-03-16] MEDS ORDERED: chlordiazePOXIDE HCL 25 MG CAPSULE PO PRN (17:41)
[2018-03-16] MEDS ORDERED: hydrOXYzine PAMOATE 50 MG CAPSULE (FP) PO PRN (17:41)
[2018-03-16] MEDS ORDERED: MAGNESIUM HYDROX 2400MG/30ML ORAL SUSPENSION 30 ML CUP PO PRN (17:41)
[2018-03-16] MEDS ORDERED: P-EPHED 60MG/TRIPROLIDI 2.5MG TABLET PO PRN (17:41)
[2018-03-16] MEDS ORDERED: MELATONIN 5 MG TABLETS PO PRN (22:00)
[2018-03-16] MEDS: THIAMINE HCL 100 MG TABLET (FP) PO SCH (22:18)
[2018-03-16] MEDS: chlordiazePOXIDE HCL 25 MG CAPSULE PO SCH (22:18)
[2018-03-16] MEDS: INSULIN (LEVEMIR) 100 UNITS/ML UNITS SQ SCH (22:30)
[2018-03-17] MEDS: chlordiazePOXIDE HCL 25 MG CAPSULE PO SCH ×4 (05:49→22:41)
[2018-03-17] MEDS ORDERED: INSULIN (NOVOLOG) ASPART 100 UNITS/ML 10ML VIAL SQ ONE (06:57)
[2018-03-17] MEDS ORDERED: INSULIN (NOVOLOG) ASPART 100 UNITS/ML 10ML VIAL ONE ×3 (07:40→16:52)
--- NOTE | 2018-03-17 09:38 | EKG ---
Test Reason : Blood Pressure : / mmHG Vent. Rate : 062 BPM Atrial Rate : 062 BPM P-R Int : 136 ms QRS Dur : 096 ms QT Int : 414 ms P-R-T Axes : 051 061 071 degrees QTc Int : 420 ms NORMAL SINUS RHYTHM WHEN COMPARED WITH ECG OF 24-DEC-2017 12:41, NO SIGNIFICANT CHANGE WAS FOUND Confirmed by CANDY VALDES MD ([id number]) on 03/17/2018 9:37:59 AM Referred By: Confirmed By:CANDY VALDES MD
[2018-03-17] MEDS: PRENATAL VITAMINS W/ FOLIC ACID TABLET (FP) PO SCH (10:12)
[2018-03-17] MEDS: amLODIPine BESYLATE 10 MG TABLET (FP) PO SCH (10:12)
[2018-03-17] MEDS: HYDROCHLOROTHIAZIDE 25 MG TABLET (FP) PO SCH (10:12)
[2018-03-17] MEDS: LISINOPRIL 20 MG TABLET (FP) PO SCH (10:12)
[2018-03-17] MEDS: NICOTINE 14 MG/24 HOURS TOPICAL PATCH TD SCH (10:13)
[2018-03-17 10:57] LABS: HEMATOCRIT 40.1 % (35.4-49); HEMOGLOBIN 12.5 GM/dL (11.7-16.9); MCH 27.2 pg (25.7-33.7); MCHC 31.3 g/dl (32.0-35.9); MEAN PLT VOLUME 10.8 fl (7.5-11.1); PLATELET COUNT 239 K/MM3 (134-434); RBC 4.61 M/mm3 (4.00-5.60); RDW 14.6 % (11.9-15.9); WHITE BLOOD COUNT 6.3 K/mm3 (4.0-10.0)
--- NOTE | 2018-03-17 11:19 | PN ---
S CIWA - CIWA Score Nausea/Vomitin Muscle Tremors: 4-Moderate,w/Arms Extend Anxiety: 4-Mod. Anxious/Guarded Agitation: 4-Moderately Restless Paroxysmal Sweats: 3 Orientation: 0-Oriented Tacttile Disturbances: 1-Very Mild Itch/Numbness Auditory Disturbances: 0-None Visual Disturbances: 0-None Headache: 1-Very Mild CIWA-Ar Total Score: 19 BHS Progress Note (SOAP) Subjective: Insomnia, anxious, sweating Objective: 03/17/18 11:16 Last Vital Signs Temp Pulse Resp BP Pulse Ox 96.9 F L 82 20 127/67 03/17/18 09:54 03/17/18 09:54 03/17/18 09:54 03/17/18 09:54 Laboratory Tests 03/16/18 03/16/18 03/17/18 17:18 20:26 05:48 WBC RBC Hgb Hct MCV MCH MCHC RDW Plt Count MPV POC Glucometer 335 303 342 03/17/18 07:00 WBC 6.3 RBC 4.61 Hgb 12.5 Hct 40.1 MCV 87.0 MCH 27.2 MCHC 31.3 L RDW 14.6 Plt Count 239 MPV 10.8 POC Glucometer Labs reviewed: cmp in progress Assessment: 03/17/18 11:18 Withdrawal sxs Plan: Continue detox Encouraged PO water intake for hydration
[2018-03-17] MEDS: INSULIN SLIDING SCALE (NOVOLOG) 1 VIAL SQ SCH ×2 (11:39→17:11)
[2018-03-17 11:54] LABS: ALBUMIN 3.2 g/dl (3.4-5.0); ALK PHOS 57 U/L (45-117); ANION GAP 13 MMOL/L (8-16); BILIRUBIN,TOTAL 0.3 mg/dL (0.2-1); BLOOD UREA NITROGEN 14 mg/dL (7-18); CALCIUM 9.2 mg/dL (8.5-10.1); CHLORIDE 104 mmol/L (98-107); CO2 24 mmol/L (21-32); CREATININE 0.7 mg/dL (0.55-1.3); POTASSIUM 4.1 mmol/L (3.5-5.1); SGOT/AST 9 U/L (15-37); SGPT/ALT 19 U/L (13-61); SODIUM 140 mmol/L (136-145); TOT PROT 6.2 g/dl (6.4-8.2)
[2018-03-17 11:59] LABS: GLUCOSE,RANDOM 357 mg/dL (74-106)
[2018-03-17] MEDS ORDERED: FLU VACCINE QUAD 60 MCG/0.5 ML (MDV 18-19) IM ONE (12:00)
[2018-03-17 17:38] LABS: URINE APPEARANCE CLEAR; URINE BILIRUBIN NEGATIVE (<2.0 mg/dL); URINE COLOR LTYELLOW; URINE GLUCOSE (UA) 3+ (NEGATIVE); URINE KETONE NEGATIVE (NEGATIVE); URINE LEUK ESTERASE NEGATIVE (NEGATIVE); URINE NITRITE NEGATIVE (NEGATIVE); URINE PROTEIN NEGATIVE (NEGATIVE); URINE UROBILINOGEN NEGATIVE mg/dL (0.2-1.0)
[2018-03-17] MEDS: IBUPROFEN 400 MG TABLET (FP) PO PRN (17:51)
--- NOTE | 2018-03-17 18:07 | CONSULT ---
[facility] Psychiatric Consult - Data Date of interview: 03/17/18 Admission source: [facility] Identifying data: This is one of multiple admissions to [facility] for this 42 y/ o AA male seeking detox treatment on for alcohol and cocaine (crack) dependence.Patient is single,a father of three,domiciled,unemployed and supported on welfare. Substance Abuse History: Confirmed by the patient in this interview.Details in current [facility] report : Smoking history: Current some day smoker. Have you smoked in the past 12 months: Yes. Aproximately how many cigarettes per day: 3. Hx Chewing Tobacco Use: No. Initiated information on smoking cessation: Yes. ' Breaking Loose' booklet given: 03/16/18. - Substance & Tx. History. Hx Alcohol Use: Yes. Hx Substance Use: Yes. Substance Use Type: Alcohol, Cocaine. Hx Substance Use Treatment: Yes (Last detox [facility] 12/24/17 -12/28/17). - Substances Abused. Crack. Route: Smoking. Frequency: Daily. Amount used : $60. Age of first use: 27. Date of Last Use: 03/14/18. Alcohol-beer/ vodka. Route: Oral. Frequency: Daily. Amount used: 1-6 pt./2 pts. Age of first use: 16. Date of Last Use: 03/15/18 Medical History: Diabetes mellitus,obesity,hypertension and low back pain.History of orthosurgery for fracture of left tibia (2014) and right fibula (2005). Psychiatric History: Patient continues to endorse a history of one psychiatric hospitalization (2009) at [facility]. Diagnosed with insomnia and MDD.No affiliation with psychiatric OPD care providers.Mr Choi denies history of suicide attempts. Physical/Sexual Abuse/Trauma History: Patient denies. Additional Comment: Urine Drug Screen Results: JAKY-Cocaine.Noted. Mental Status Exam - Mental Status Exam Alert and Oriented to: Time, Place, Person Cognitive Function: Good Patient Appearance: Well Groomed Mood: Withdrawn Affect: Appropriate, Normal Range Patient Behavior: Appropriate, Cooperative Speech Pattern: Clear, Appropriate Voice Loudness: Normal Thought Process: Intact, Goal Oriented Thought Disorder: Not Present Hallucinations: Denies Suicidal Ideation: Denies Homicidal Ideation: Denies Insight/Judgement: Poor Sleep: Poorly, Difficulty falling asleep (wants trazodone) Appetite: Good Muscle strength/Tone: Normal Gait/Station: Normal Psychiatric Findings - Problem List ([place] 1, 2,3) (1) Alcohol dependence with uncomplicated withdrawal Current Visit: Yes Status: Acute (2) Cocaine dependence, uncomplicated Current Visit: Yes Status: Acute (3) Nicotine dependence Current Visit: Yes Status: Acute Qualifiers: Nicotine product type: cigarettes Substance use status: uncomplicated Qualified Code(s): F17.210 - Nicotine dependence, cigarettes, uncomplicated (4) Insomnia Current Visit: Yes Status: Acute (5) Non-compliance Current Visit: Yes Status: Chronic - Initial Treatment Plan Initial Treatment Plan: Psychoeducation.Sleep hygiene.Detoxification in progress.Trazodone 100 mg po hs.Patient is informed of risk of priapism.Mr Choi agrees to this careplan.Observation.
[2018-03-17] MEDS: INSULIN (LEVEMIR) 100 UNITS/ML UNITS SQ SCH (21:39)
[2018-03-17] MEDS: CYCLOBENZAPRINE HCL 10 MG TABLET (FP) PO PRN (21:41)
[2018-03-17] MEDS: THIAMINE HCL 100 MG TABLET (FP) PO SCH (21:41)
[2018-03-17] MEDS: traZODone HCL 100 MG TABLET (FP) PO SCH (21:41)
[2018-03-18] MEDS: chlordiazePOXIDE HCL 25 MG CAPSULE PO SCH ×3 (05:46→17:42)
[2018-03-18] MEDS ORDERED: INSULIN (NOVOLOG) ASPART 100 UNITS/ML 10ML VIAL ONE ×3 (06:07→17:05)
[2018-03-18] MEDS: INSULIN SLIDING SCALE (NOVOLOG) 1 VIAL SQ SCH ×3 (06:10→17:42)
[2018-03-18] MEDS: HYDROCHLOROTHIAZIDE 25 MG TABLET (FP) PO SCH (10:28)
[2018-03-18] MEDS: amLODIPine BESYLATE 10 MG TABLET (FP) PO SCH (10:28)
[2018-03-18] MEDS: LISINOPRIL 20 MG TABLET (FP) PO SCH (10:28)
[2018-03-18] MEDS: PRENATAL VITAMINS W/ FOLIC ACID TABLET (FP) PO SCH (10:28)
[2018-03-18] MEDS: NICOTINE 14 MG/24 HOURS TOPICAL PATCH TD SCH (10:29)
[2018-03-18] MEDS: CYCLOBENZAPRINE HCL 10 MG TABLET (FP) PO PRN ×2 (10:30→22:11)
[2018-03-18] MEDS: METHYL SALICYLATE/MENTHOL OINT 30 GM TUBE TP SCH (11:06)
--- NOTE | 2018-03-18 12:02 | PN ---
[facility] CIWA - CIWA Score Nausea/Vomitin-No Nausea/No Vomiting Muscle Tremors: 2 Anxiety: 2 Agitation: 2 Paroxysmal Sweats: 2 Orientation: 0-Oriented Tacttile Disturbances: 2-Mild Itch/Numbness/Burn Auditory Disturbances: 0-None Visual Disturbances: 0-None Headache: 0-None Present CIWA-Ar Total Score: 10 S Progress Note (SOAP) Subjective: interrupted sleep, body aches, right knee pain Objective: 03/18/18 11:59 Vital Signs Temperature 97.1 F L 03/18/18 09:15 Pulse Rate 108 H 03/18/18 09:15 Respiratory Rate 20 03/18/18 09:15 Blood Pressure 137/92 03/18/18 09:15 O2 Sat by Pulse Oximetry (%) Laboratory Last Values WBC 6.3 K/mm3 (4.0-10.0) 03/17/18 07:00 RBC 4.61 M/mm3 (4.00-5.60) 03/17/18 07:00 Hgb 12.5 GM/dL (11.7-16.9) 03/17/18 07:00 Hct 40.1 % (35.4-49) 03/17/18 07:00 MCV 87.0 fl (80-96) 03/17/18 07:00 MCH 27.2 pg (25.7-33.7) 03/17/18 07:00 MCHC 31.3 g/dl (32.0-35.9) L 03/17/18 07:00 RDW 14.6 % (11.9-15.9) 03/17/18 07:00 Plt Count 239 K/MM3 (134-434) 03/17/18 07:00 MPV 10.8 fl (7.5-11.1) 03/17/18 07:00 Sodium 140 mmol/L (136-145) 03/17/18 07:00 Potassium 4.1 mmol/L (3.5-5.1) 03/17/18 07:00 Chloride 104 mmol/L (98-107) 03/17/18 07:00 Carbon Dioxide 24 mmol/L (21-32) 03/17/18 07:00 Anion Gap 13 MMOL/L (8-16) 03/17/18 07:00 BUN 14 mg/dL (7-18) 03/17/18 07:00 Creatinine 0.7 mg/dL (0.55-1.3) 03/17/18 07:00 Creat Clearance w eGFR > 60 (>60) 03/17/18 07:00 POC Glucometer 360 UNITS (80-120) 03/18/18 11:34 Random Glucose 357 mg/dL (74-106) H* 03/17/18 07:00 Calcium 9.2 mg/dL (8.5-10.1) 03/17/18 07:00 Total Bilirubin 0.3 mg/dL (0.2-1) 03/17/18 07:00 AST 9 U/L (15-37) L 03/17/18 07:00 ALT 19 U/L (13-61) 03/17/18 07:00 Alkaline Phosphatase 57 U/L (45-117) 03/17/18 07:00 Total Protein 6.2 g/dl (6.4-8.2) L 03/17/18 07:00 Albumin 3.2 g/dl (3.4-5.0) L 03/17/18 07:00 Urine Color Ltyellow 03/17/18 16:30 Urine Appearance Clear 03/17/18 16:30 Urine pH 6.0 (5.0-8.0) 03/17/18 16:30 Ur Specific [place] 1.026 (1.010-1.035) 03/17/18 16:30 Urine Protein Negative (NEGATIVE) 03/17/18 16:30 Urine Glucose (UA) 3+ (NEGATIVE) H 03/17/18 16:30 Urine Ketones Negative (NEGATIVE) 03/17/18 16:30 Urine Blood Negative (NEGATIVE) 03/17/18 16:30 Urine Nitrite Negative (NEGATIVE) 03/17/18 16:30 Urine Bilirubin Negative (<2.0 mg/dL) 03/17/18 16:30 Urine Urobilinogen Negative mg/dL (0.2-1.0) 03/17/18 16:30 Ur Leukocyte Esterase Negative (NEGATIVE) 03/17/18 16:30 RPR Titer Nonreactive (NONREACTIVE) 03/17/18 07:00 Aox3 no distress no adventitious breath sounds full ROM, ambulating in the unit, + right knee pain withdrawal symptoms Plan: Increase PO fluids TP [place] right knee PRN ambulate continue to monitor
[2018-03-18] MEDS: IBUPROFEN 400 MG TABLET (FP) PO PRN (17:45)
[2018-03-18] MEDS: chlordiazePOXIDE 5 MG CAPSULE PO SCH (22:11)
[2018-03-18] MEDS: traZODone HCL 100 MG TABLET (FP) PO SCH (22:11)
[2018-03-18] MEDS: THIAMINE HCL 100 MG TABLET (FP) PO SCH (22:11)
[2018-03-18] MEDS: INSULIN (LEVEMIR) 100 UNITS/ML UNITS SQ SCH (22:14)
[2018-03-19] MEDS: chlordiazePOXIDE 5 MG CAPSULE PO SCH ×3 (06:08→17:32)
[2018-03-19] MEDS ORDERED: INSULIN (NOVOLOG) ASPART 100 UNITS/ML 10ML VIAL ONE ×4 (06:25→22:14)
[2018-03-19] MEDS: INSULIN SLIDING SCALE (NOVOLOG) 1 VIAL SQ SCH ×3 (06:45→17:32)
--- NOTE | 2018-03-19 10:18 | PN ---
[facility] Progress Note (SOAP) Subjective: Right leg pain,sweats and interrupted sleep Objective: 03/19/18 10:16 Vital Signs - 8 hr 03/19/18 03/19/18 03/19/18 03:30 06:12 09:18 Temperature 97.0 F L 96.6 F L Pulse Rate 74 68 Respiratory 18 18 16 Rate Blood Pressure 113/67 107/72 Laboratory Last Values WBC 6.3 K/mm3 (4.0-10.0) 03/17/18 07:00 RBC 4.61 M/mm3 (4.00-5.60) 03/17/18 07:00 Hgb 12.5 GM/dL (11.7-16.9) 03/17/18 07:00 Hct 40.1 % (35.4-49) 03/17/18 07:00 MCV 87.0 fl (80-96) 03/17/18 07:00 MCH 27.2 pg (25.7-33.7) 03/17/18 07:00 MCHC 31.3 g/dl (32.0-35.9) L 03/17/18 07:00 RDW 14.6 % (11.9-15.9) 03/17/18 07:00 Plt Count 239 K/MM3 (134-434) 03/17/18 07:00 MPV 10.8 fl (7.5-11.1) 03/17/18 07:00 Sodium 140 mmol/L (136-145) 03/17/18 07:00 Potassium 4.1 mmol/L (3.5-5.1) 03/17/18 07:00 Chloride 104 mmol/L (98-107) 03/17/18 07:00 Carbon Dioxide 24 mmol/L (21-32) 03/17/18 07:00 Anion Gap 13 MMOL/L (8-16) 03/17/18 07:00 BUN 14 mg/dL (7-18) 03/17/18 07:00 Creatinine 0.7 mg/dL (0.55-1.3) 03/17/18 07:00 Creat Clearance w eGFR > 60 (>60) 03/17/18 07:00 POC Glucometer 250 UNITS (80-120) 03/19/18 06:22 Random Glucose 357 mg/dL (74-106) H* 03/17/18 07:00 Calcium 9.2 mg/dL (8.5-10.1) 03/17/18 07:00 Total Bilirubin 0.3 mg/dL (0.2-1) 03/17/18 07:00 AST 9 U/L (15-37) L 03/17/18 07:00 ALT 19 U/L (13-61) 03/17/18 07:00 Alkaline Phosphatase 57 U/L (45-117) 03/17/18 07:00 Total Protein 6.2 g/dl (6.4-8.2) L 03/17/18 07:00 Albumin 3.2 g/dl (3.4-5.0) L 03/17/18 07:00 Urine Color Ltyellow 03/17/18 16:30 Urine Appearance Clear 03/17/18 16:30 Urine pH 6.0 (5.0-8.0) 03/17/18 16:30 Ur Specific [place] 1.026 (1.010-1.035) 03/17/18 16:30 Urine Protein Negative (NEGATIVE) 03/17/18 16:30 Urine Glucose (UA) 3+ (NEGATIVE) H 03/17/18 16:30 Urine Ketones Negative (NEGATIVE) 03/17/18 16:30 Urine Blood Negative (NEGATIVE) 03/17/18 16:30 Urine Nitrite Negative (NEGATIVE) 03/17/18 16:30 Urine Bilirubin Negative (<2.0 mg/dL) 03/17/18 16:30 Urine Urobilinogen Negative mg/dL (0.2-1.0) 03/17/18 16:30 Ur Leukocyte Esterase Negative (NEGATIVE) 03/17/18 16:30 RPR Titer Nonreactive (NONREACTIVE) 03/17/18 07:00 Labs noted Right leg pain No apparent distress Assessment: 03/19/18 10:16 Withdrawal sx Chronic right leg pain Plan: Continue detox Pain management as ordered
[2018-03-19] MEDS: amLODIPine BESYLATE 10 MG TABLET (FP) PO SCH (10:34)
[2018-03-19] MEDS: NICOTINE 14 MG/24 HOURS TOPICAL PATCH TD SCH (10:34)
[2018-03-19] MEDS: METHYL SALICYLATE/MENTHOL OINT 30 GM TUBE TP SCH (10:34)
[2018-03-19] MEDS: LISINOPRIL 20 MG TABLET (FP) PO SCH (10:34)
[2018-03-19] MEDS: HYDROCHLOROTHIAZIDE 25 MG TABLET (FP) PO SCH (10:34)
[2018-03-19] MEDS: PRENATAL VITAMINS W/ FOLIC ACID TABLET (FP) PO SCH (10:35)
[2018-03-19] MEDS: CYCLOBENZAPRINE HCL 10 MG TABLET (FP) PO PRN (17:35)
[2018-03-19] MEDS: traZODone HCL 100 MG TABLET (FP) PO SCH (22:21)
[2018-03-19] MEDS: THIAMINE HCL 100 MG TABLET (FP) PO SCH (22:21)
[2018-03-19] MEDS: chlordiazePOXIDE HCL 10 MG CAPSULE PO SCH (22:21)
[2018-03-19] MEDS: INSULIN (LEVEMIR) 100 UNITS/ML UNITS SQ SCH (22:21)
[2018-03-19] MEDS: IBUPROFEN 400 MG TABLET (FP) PO PRN (22:26)
[2018-03-20] MEDS: chlordiazePOXIDE HCL 10 MG CAPSULE PO SCH (05:36)
[2018-03-20] MEDS ORDERED: INSULIN (NOVOLOG) ASPART 100 UNITS/ML 10ML VIAL ONE (06:21)
[2018-03-20] MEDS: INSULIN SLIDING SCALE (NOVOLOG) 1 VIAL SQ SCH (06:38)
[2018-03-20] MEDS: LISINOPRIL 20 MG TABLET (FP) PO SCH (09:33)
[2018-03-20] MEDS: NICOTINE 14 MG/24 HOURS TOPICAL PATCH TD SCH (09:33)
[2018-03-20] MEDS: amLODIPine BESYLATE 10 MG TABLET (FP) PO SCH (09:33)
[2018-03-20] MEDS: HYDROCHLOROTHIAZIDE 25 MG TABLET (FP) PO SCH (09:33)
[2018-03-20] MEDS: PRENATAL VITAMINS W/ FOLIC ACID TABLET (FP) PO SCH (09:33)
[2018-03-20] MEDS: METHYL SALICYLATE/MENTHOL OINT 30 GM TUBE TP SCH (09:34)
[2018-03-20 09:41] VITALS: BP 137/77; PULSE 109; TEMP 97.4
--- NOTE | 2018-03-20 13:31 | PN ---
S Progress Note (SOAP) Subjective: No complains offered Objective: 03/20/18 13:30 A & O x 3 In good mood Gait steady' Vital Signs Temperature 97.4 F L 03/20/18 09:40 Pulse Rate 109 H 03/20/18 09:40 Respiratory Rate 20 03/20/18 09:40 Blood Pressure 137/77 03/20/18 09:40 O2 Sat by Pulse Oximetry (%) High HR noted, no complaint of chest pains, palpitations Assessment: 03/20/18 13:31 Detox completed Plan: For discharge
--- NOTE | 2018-03-20 13:37 | DS ---
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 [facility] Rehab - Medication Discharge Medications: Ambulatory Orders traZODone HCL [Desyrel -] 100 mg PO HS 04/06/17 Amlodipine Besylate [Norvasc -] 10 mg PO DAILY #30 tablet 12/28/17 Hydrochlorothiazide 25 mg PO DAILY #30 tablet 12/28/17 Lisinopril [Prinivil] 20 mg PO DAILY #30 tablet 12/28/17 Insulin Detemir [Levemir Flextouch] 20 units SQ Q12H 03/16/18 - Diagnosis (1) Alcohol dependence with uncomplicated withdrawal Status: Acute (2) Alcohol-induced sleep disorder Status: Acute (3) Cocaine dependence, uncomplicated Status: Acute (4) Drug-induced mood disorder Status: Acute (5) Insomnia Status: Acute (6) Nicotine dependence Status: Acute Qualifiers: Nicotine product type: cigarettes Substance use status: uncomplicated Qualified Code(s): F17.210 - Nicotine dependence, cigarettes, uncomplicated (7) Diabetes type I Status: Chronic Qualifiers: Diabetes mellitus complication status: without complication Qualified Code( s): E10.9 - Type 1 diabetes mellitus without complications (8) Dyslipidemia Status: Chronic (9) History of pancreatitis Status: Chronic (10) Hypertension Status: Chronic Qualifiers: Hypertension type: essential hypertension Qualified Code(s): I10 - Essential (primary) hypertension - AMA Did Patient Leave Against Medical Advice: No
== END 2018-03-20 09:55 | disposition home or self-care (01) | DRG 774 ==
LOC: YASAS 14:27 → Y3N 18:32
PROC: HZ2ZZZZ Detoxification Services for Substance Abuse Treatment (ICD-10-PCS; principal; 2018-03-16)
DX: F10.230 Alcohol dependence with withdrawal, uncomplicated (principal); F14.20 Cocaine dependence, uncomplicated; F17.210 Nicotine dependence, cigarettes, uncomplicated; F10.282 Alcohol dependence with alcohol-induced sleep disorder; F19.24 Other psychoactive substance dependence with psychoactive substance-induced mood disorder; F34.1 Dysthymic disorder; F33.9 Major depressive disorder, recurrent, unspecified; G47.00 Insomnia, unspecified; E78.5 Hyperlipidemia, unspecified; E11.65 Type 2 diabetes mellitus with hyperglycemia; Z79.4 Long term (current) use of insulin; I10 Essential (primary) hypertension; E66.9 Obesity, unspecified; Z68.32 Body mass index [BMI] 32.0-32.9, adult; Z87.19 Personal history of other diseases of the digestive system; Z91.19 Patient's noncompliance with other medical treatment and regimen
CPT/HCPCS: 36415; 80053; 81003; 82962; 85027; 86593; 90688; 93005; 93010; G0008

== ENCOUNTER 2023-02-02 15:36 | Inpatient (IN) | payer BC, OTHER ==
[2023-02-02 17:05] VITALS: BMI 26.8
[2023-02-02] MEDS ORDERED: BENZONATATE 200 MG CAPSULE PO PRN (19:30)
[2023-02-02] MEDS ORDERED: POLYETHYLENE GLYCOL (HEALTHYLAX) 3350 17 GM PACKET PO PRN (19:30)
[2023-02-02] MEDS ORDERED: BISMUTH SUBSALICYLATE 524 MG/30 ML PO PRN (19:30)
[2023-02-02] MEDS ORDERED: ACETAMINOPHEN 325 MG TABLET (FP) PO PRN (19:30)
[2023-02-02] MEDS ORDERED: LOPERAMIDE HCL 2 MG CAPSULE PO PRN (19:30)
[2023-02-02] MEDS ORDERED: DICYCLOMINE HCL 10 MG CAPSULE PO PRN (19:30)
[2023-02-02] MEDS ORDERED: P-EPHED 60MG/TRIPROLIDI 2.5MG TABLET PO PRN (19:30)
[2023-02-02] MEDS ORDERED: BENZOCAINE/MENTHOL (CHLORASEPTIC ) LOZENGE MM PRN (19:30)
[2023-02-02] MEDS ORDERED: IBUPROFEN 600 MG TABLET (FP) PO PRN (19:30)
[2023-02-02] MEDS ORDERED: MAGNESIUM HYDROX 2400MG/30ML ORAL SUSPENSION 30 ML CUP PO PRN (19:30)
[2023-02-02] MEDS ORDERED: ONDANSETRON *ODT* 4 MG TABLET SL PRN (19:30)
[2023-02-02] MEDS ORDERED: guaiFENesin 600 MG TABLET.ER (FP) PO PRN (19:30)
[2023-02-02] MEDS ORDERED: MAG HYDROX/AL HYDROX/SIMETH 30 ML UNIT-DOSE CUP PO PRN (19:30)
[2023-02-02] MEDS ORDERED: IBUPROFEN 400 MG TABLET (FP) PO PRN (19:30)
[2023-02-02] MEDS ORDERED: NICOTINE POLACRILEX 2 MG GUM BUC PRN (19:30)
[2023-02-02] MEDS ORDERED: cloNIDine HCL 0.1 MG TABLET PO ONE (21:18)
[2023-02-02] MEDS: amLODIPine BESYLATE 10 MG TABLET (FP) PO SCH (21:26)
[2023-02-02] MEDS: ASPIRIN COATED 81 MG TABLET.EC PO SCH (21:26)
[2023-02-02] MEDS: BACITRACIN ZINC 15 GM TUBE TOPICAL OINTMENT TP SCH (21:39)
[2023-02-02] MEDS: INSULIN SLIDING SCALE (NOVOLOG) 1 VIAL SQ SCH (22:47)
[2023-02-02] MEDS: hydrOXYzine PAMOATE 25 MG CAPSULE (FP) PO PRN (22:51)
[2023-02-02] MEDS: MELATONIN 5 MG TABLETS PO SCH (22:51)
[2023-02-02] MEDS: METHOCARBAMOL 500 MG TABLET PO PRN (22:51)
[2023-02-02] MEDS: THIAMINE HCL 100 MG TABLET (FP) PO SCH (22:53)
[2023-02-03] MEDS: INSULIN SLIDING SCALE (NOVOLOG) 1 VIAL SQ SCH ×4 (06:54→22:41)
[2023-02-03] MEDS: amLODIPine BESYLATE 10 MG TABLET (FP) PO SCH (10:07)
[2023-02-03] MEDS: ASPIRIN COATED 81 MG TABLET.EC PO SCH (10:07)
[2023-02-03] MEDS: PANTOPRAZOLE 40 MG TABLET PO SCH (10:07)
[2023-02-03] MEDS: PRENATAL VITAMINS W/ FOLIC ACID TABLET (FP) PO SCH (10:08)
[2023-02-03] MEDS ORDERED: LORazepam 1 MG TABLET PO PRN (10:25)
[2023-02-03] MEDS: LORazepam 2 MG TABLET PO SCH ×3 (10:58→22:50)
[2023-02-03] MEDS: BACITRACIN ZINC 15 GM TUBE TOPICAL OINTMENT TP SCH (11:06)
[2023-02-03 11:54] LABS: HEMATOCRIT 36.2 % (35.4-49); HEMOGLOBIN 11.6 GM/dL (11.7-16.9); MCH 30.3 pg (25.7-33.7); MEAN CELL VOLUME 94.8 fl (80-96); MEAN PLT VOLUME 9.7 fl (7.5-11.1); PLATELET COUNT 301 10^3/uL (134-434); RBC 3.82 M/mm3 (4.00-5.60); RDW 14.9 % (11.9-15.9); WHITE BLOOD COUNT 6.5 K/mm3 (4.0-10.0)
[2023-02-03 11:59] LABS: POTASSIUM 3.7 mmol/L (3.5-5.1)
[2023-02-03 12:07] LABS: ALBUMIN 3.5 g/dl (3.4-5.0); BLOOD UREA NITROGEN 6.5 mg/dL (7-18)
[2023-02-03 12:10] LABS: CREATININE 0.8 mg/dL (0.55-1.3)
[2023-02-03 12:12] LABS: BILIRUBIN,TOTAL 0.4 mg/dL (0.2-1); TOT PROT 7.1 g/dl (6.4-8.2)
[2023-02-03] MEDS: cloNIDine HCL 0.1 MG TABLET PO PRN ×2 (19:55→22:50)
[2023-02-03] MEDS: BACITRACIN 0.9 GM PACKET TP SCH (22:44)
[2023-02-03] MEDS: MELATONIN 5 MG TABLETS PO SCH (22:48)
[2023-02-03] MEDS: hydrOXYzine PAMOATE 25 MG CAPSULE (FP) PO PRN (22:48)
[2023-02-03] MEDS: THIAMINE HCL 100 MG TABLET (FP) PO SCH (22:48)
[2023-02-03] MEDS: METHOCARBAMOL 500 MG TABLET PO PRN (22:48)
[2023-02-03] MEDS: traZODone HCL 100 MG TABLET (FP) PO SCH (22:48)
[2023-02-04] MEDS: LORazepam 2 MG TABLET PO SCH ×4 (05:33→22:11)
[2023-02-04] MEDS: INSULIN SLIDING SCALE (NOVOLOG) 1 VIAL SQ SCH ×4 (06:27→22:01)
[2023-02-04] MEDS: PANTOPRAZOLE 40 MG TABLET PO SCH (10:15)
[2023-02-04] MEDS: BACITRACIN 0.9 GM PACKET TP SCH ×2 (10:15→22:13)
[2023-02-04] MEDS: ASPIRIN COATED 81 MG TABLET.EC PO SCH (10:15)
[2023-02-04] MEDS: amLODIPine BESYLATE 10 MG TABLET (FP) PO SCH (10:15)
[2023-02-04] MEDS: PRENATAL VITAMINS W/ FOLIC ACID TABLET (FP) PO SCH (10:15)
[2023-02-04] MEDS: MELATONIN 5 MG TABLETS PO SCH (22:12)
[2023-02-04] MEDS: traZODone HCL 100 MG TABLET (FP) PO SCH (22:12)
[2023-02-04] MEDS: THIAMINE HCL 100 MG TABLET (FP) PO SCH (22:12)
[2023-02-05] MEDS: LORazepam 1 MG TABLET PO SCH ×4 (05:46→22:35)
[2023-02-05] MEDS: INSULIN SLIDING SCALE (NOVOLOG) 1 VIAL SQ SCH ×4 (06:19→22:32)
[2023-02-05] MEDS: amLODIPine BESYLATE 10 MG TABLET (FP) PO SCH (10:29)
[2023-02-05] MEDS: PRENATAL VITAMINS W/ FOLIC ACID TABLET (FP) PO SCH (10:29)
[2023-02-05] MEDS: ASPIRIN COATED 81 MG TABLET.EC PO SCH (10:29)
[2023-02-05] MEDS: BACITRACIN 0.9 GM PACKET TP SCH ×2 (10:29→22:36)
[2023-02-05] MEDS: PANTOPRAZOLE 40 MG TABLET PO SCH (10:29)
[2023-02-05] MEDS: MELATONIN 5 MG TABLETS PO SCH (22:34)
[2023-02-05] MEDS: METHOCARBAMOL 500 MG TABLET PO PRN (22:34)
[2023-02-05] MEDS: THIAMINE HCL 100 MG TABLET (FP) PO SCH (22:34)
[2023-02-05] MEDS: traZODone HCL 100 MG TABLET (FP) PO SCH (22:34)
[2023-02-06] MEDS ORDERED: LORazepam 0.5 MG TABLET PO PRN
[2023-02-06] MEDS: LORazepam 0.5 MG TABLET PO SCH ×4 (05:58→22:34)
[2023-02-06] MEDS: INSULIN SLIDING SCALE (NOVOLOG) 1 VIAL SQ SCH ×4 (07:19→22:32)
[2023-02-06] MEDS: ASPIRIN COATED 81 MG TABLET.EC PO SCH (10:36)
[2023-02-06] MEDS: PANTOPRAZOLE 40 MG TABLET PO SCH (10:36)
[2023-02-06] MEDS: amLODIPine BESYLATE 10 MG TABLET (FP) PO SCH (10:36)
[2023-02-06] MEDS: PRENATAL VITAMINS W/ FOLIC ACID TABLET (FP) PO SCH (10:37)
[2023-02-06] MEDS: BACITRACIN 0.9 GM PACKET TP SCH ×2 (10:37→22:32)
[2023-02-06] MEDS: METHOCARBAMOL 500 MG TABLET PO PRN (22:33)
[2023-02-06] MEDS: MELATONIN 5 MG TABLETS PO SCH (22:33)
[2023-02-06] MEDS: LISINOPRIL 10 MG TABLET PO SCH (22:33)
[2023-02-06] MEDS: hydrOXYzine PAMOATE 25 MG CAPSULE (FP) PO PRN (22:33)
[2023-02-06] MEDS: THIAMINE HCL 100 MG TABLET (FP) PO SCH (22:34)
[2023-02-06] MEDS: traZODone HCL 100 MG TABLET (FP) PO SCH (22:34)
[2023-02-07] MEDS ORDERED: LORazepam 0.5 MG TABLET PO ONE (05:00)
[2023-02-07] MEDS: INSULIN SLIDING SCALE (NOVOLOG) 1 VIAL SQ SCH ×2 (06:09→11:10)
[2023-02-07 09:40] VITALS: BP 119/72; PULSE 98; RESP 18; TEMP 98.2
[2023-02-07] MEDS: PANTOPRAZOLE 40 MG TABLET PO SCH (10:12)
[2023-02-07] MEDS: LISINOPRIL 10 MG TABLET PO SCH (10:12)
[2023-02-07] MEDS: ASPIRIN COATED 81 MG TABLET.EC PO SCH (10:12)
[2023-02-07] MEDS: PRENATAL VITAMINS W/ FOLIC ACID TABLET (FP) PO SCH (10:12)
[2023-02-07] MEDS: amLODIPine BESYLATE 10 MG TABLET (FP) PO SCH (10:12)
[2023-02-07] MEDS: BACITRACIN 0.9 GM PACKET TP SCH (10:12)
== END 2023-02-07 15:08 | disposition other institution (70) | DRG 772 ==
LOC: YASAS 15:36 → Y3N 20:37
PROVIDERS: ADMIT Allergy & Immunology; ATTEND Surgery
PROC: HZ42ZZZ Group Counseling for Substance Abuse Treatment, Cognitive-Behavioral (ICD-10-PCS; principal; 2023-02-02)
DX: F10.230 Alcohol dependence with withdrawal, uncomplicated (principal); F17.210 Nicotine dependence, cigarettes, uncomplicated; F41.9 Anxiety disorder, unspecified; F32.A Depression, unspecified; I10 Essential (primary) hypertension; K21.9 Gastro-esophageal reflux disease without esophagitis; E78.5 Hyperlipidemia, unspecified; E11.9 Type 2 diabetes mellitus without complications; Z79.4 Long term (current) use of insulin; Z88.8 Allergy status to other drugs, medicaments and biological substances
CPT/HCPCS: 36415; 80053; 82962; 85027; 86780; 87635; 87811

== ENCOUNTER 2023-02-07 15:23 | Inpatient (IN) | payer OTHER ==
[2023-02-07] MEDS ORDERED: LOPERAMIDE HCL 2 MG CAPSULE PO PRN (17:07)
[2023-02-07] MEDS ORDERED: POLYETHYLENE GLYCOL (HEALTHYLAX) 3350 17 GM PACKET PO PRN (17:07)
[2023-02-07] MEDS ORDERED: COLLOIDAL OATMEAL 1 BAR EACH TP PRN (17:07)
[2023-02-07] MEDS ORDERED: BENZONATATE 200 MG CAPSULE PO PRN (17:07)
[2023-02-07] MEDS ORDERED: MAGNESIUM HYDROX 2400MG/30ML ORAL SUSPENSION 30 ML CUP PO PRN (17:07)
[2023-02-07] MEDS ORDERED: NALOXONE HCL (KLOXXADO) 8 MG SPRAY NS PRN (17:07)
[2023-02-07] MEDS ORDERED: METHOCARBAMOL 500 MG TABLET PO PRN (17:07)
[2023-02-07] MEDS ORDERED: AMMONIUM LACTATE 12% LOTION 225 GM BOTTLE TP PRN (17:07)
[2023-02-07] MEDS ORDERED: NALOXONE HCL 0.4 MG/ML VIAL IVPUSH PRN (17:07)
[2023-02-07] MEDS ORDERED: ACETAMINOPHEN 325 MG TABLET (FP) PO PRN (17:07)
[2023-02-07] MEDS ORDERED: guaiFENesin 600 MG TABLET.ER (FP) PO PRN (17:07)
[2023-02-07] MEDS ORDERED: hydrOXYzine PAMOATE 25 MG CAPSULE (FP) PO PRN (17:07)
[2023-02-07] MEDS ORDERED: MAG HYDROX/AL HYDROX/SIMETH 30 ML UNIT-DOSE CUP PO PRN (17:07)
[2023-02-07] MEDS ORDERED: BENZOCAINE/MENTHOL (CHLORASEPTIC ) LOZENGE MM PRN (17:07)
[2023-02-07] MEDS ORDERED: NICOTINE POLACRILEX 2 MG GUM BUC PRN (17:18)
[2023-02-07] MEDS: THIAMINE HCL 100 MG TABLET (FP) PO SCH (21:13)
[2023-02-07] MEDS ORDERED: MELATONIN 5 MG TABLETS PO SCH (22:00)
[2023-02-07] MEDS ORDERED: traZODone HCL 100 MG TABLET (FP) PO SCH (22:00)
[2023-02-08] MEDS: INSULIN SLIDING SCALE (NOVOLOG) 1 VIAL SQ SCH ×2 (07:58→16:48)
[2023-02-08] MEDS: PRENATAL VITAMINS W/ FOLIC ACID TABLET (FP) PO SCH (09:35)
[2023-02-08] MEDS: amLODIPine BESYLATE 10 MG TABLET (FP) PO SCH (09:36)
[2023-02-08] MEDS: PANTOPRAZOLE 40 MG TABLET PO SCH (09:36)
[2023-02-08] MEDS ORDERED: ASPIRIN COATED 81 MG TABLET.EC PO SCH (10:00)
[2023-02-08] MEDS: BACITRACIN 0.9 GM PACKET TP SCH ×2 (12:16→21:35)
[2023-02-08 13:05] LABS: HIV INTERPRETATION NEGATIVE (NEGATIVE)
[2023-02-08] MEDS: THIAMINE HCL 100 MG TABLET (FP) PO SCH (21:35)
[2023-02-08] MEDS: traZODone HCL 50 MG TABLET (FP) PO SCH (21:35)
[2023-02-08] MEDS: ATORVASTATIN CA 10 MG TABLET (FP) PO SCH (21:35)
[2023-02-09] MEDS: INSULIN SLIDING SCALE (NOVOLOG) 1 VIAL SQ SCH ×2 (06:28→17:54)
[2023-02-09] MEDS: PANTOPRAZOLE 40 MG TABLET PO SCH (09:39)
[2023-02-09] MEDS: BACITRACIN 0.9 GM PACKET TP SCH ×2 (09:39→21:42)
[2023-02-09] MEDS: amLODIPine BESYLATE 10 MG TABLET (FP) PO SCH (09:39)
[2023-02-09] MEDS: PRENATAL VITAMINS W/ FOLIC ACID TABLET (FP) PO SCH (09:39)
[2023-02-09] MEDS: HYDROCHLOROTHIAZIDE 25 MG TABLET (FP) PO SCH (09:39)
[2023-02-09] MEDS ORDERED: HYDROCHLOROTHIAZIDE 25 MG TABLET (FP) PO SCH (10:00)
[2023-02-09 10:03] LABS: MAGNESIUM 1.7 mg/dL (1.8-2.4)
[2023-02-09 10:07] LABS: PHOSPHOROUS 4.4 mg/dL (2.5-4.9)
[2023-02-09] MEDS: MAGNESIUM OXIDE 400 MG TABLET (FP) PO SCH (11:14)
[2023-02-09] MEDS: THIAMINE HCL 100 MG TABLET (FP) PO SCH (21:42)
[2023-02-09] MEDS: traZODone HCL 50 MG TABLET (FP) PO SCH (21:42)
[2023-02-09] MEDS: ATORVASTATIN CA 10 MG TABLET (FP) PO SCH (21:42)
[2023-02-10] MEDS: INSULIN SLIDING SCALE (NOVOLOG) 1 VIAL SQ SCH ×2 (07:03→17:18)
[2023-02-10] MEDS: BACITRACIN 0.9 GM PACKET TP SCH ×2 (09:58→21:59)
[2023-02-10] MEDS: HYDROCHLOROTHIAZIDE 25 MG TABLET (FP) PO SCH (09:58)
[2023-02-10] MEDS: PRENATAL VITAMINS W/ FOLIC ACID TABLET (FP) PO SCH (09:58)
[2023-02-10] MEDS: amLODIPine BESYLATE 10 MG TABLET (FP) PO SCH (09:58)
[2023-02-10] MEDS: PANTOPRAZOLE 40 MG TABLET PO SCH (09:58)
[2023-02-10] MEDS: MAGNESIUM OXIDE 400 MG TABLET (FP) PO SCH (09:58)
[2023-02-10 11:22] LABS: INR 0.97 (0.83-1.09); PROTHROMBIN TIME (PATIENT) 11.2 SEC (9.7-13.0)
[2023-02-10] MEDS: ATORVASTATIN CA 10 MG TABLET (FP) PO SCH (21:32)
[2023-02-10] MEDS: THIAMINE HCL 100 MG TABLET (FP) PO SCH (21:32)
[2023-02-10] MEDS: traZODone HCL 50 MG TABLET (FP) PO SCH (21:32)
[2023-02-11] MEDS: INSULIN SLIDING SCALE (NOVOLOG) 1 VIAL SQ SCH ×2 (07:40→16:48)
[2023-02-11] MEDS: PRENATAL VITAMINS W/ FOLIC ACID TABLET (FP) PO SCH (09:30)
[2023-02-11] MEDS: MAGNESIUM OXIDE 400 MG TABLET (FP) PO SCH (09:31)
[2023-02-11] MEDS: BACITRACIN 0.9 GM PACKET TP SCH ×2 (09:31→21:06)
[2023-02-11] MEDS: PANTOPRAZOLE 40 MG TABLET PO SCH (09:31)
[2023-02-11] MEDS: HYDROCHLOROTHIAZIDE 25 MG TABLET (FP) PO SCH (11:07)
[2023-02-11] MEDS: amLODIPine BESYLATE 10 MG TABLET (FP) PO SCH (11:07)
[2023-02-11] MEDS: ATORVASTATIN CA 10 MG TABLET (FP) PO SCH (21:08)
[2023-02-11] MEDS: traZODone HCL 50 MG TABLET (FP) PO SCH (21:08)
[2023-02-11] MEDS: THIAMINE HCL 100 MG TABLET (FP) PO SCH (21:10)
[2023-02-12] MEDS: INSULIN SLIDING SCALE (NOVOLOG) 1 VIAL SQ SCH ×2 (07:08→16:30)
[2023-02-12] MEDS: PRENATAL VITAMINS W/ FOLIC ACID TABLET (FP) PO SCH (09:43)
[2023-02-12] MEDS: PANTOPRAZOLE 40 MG TABLET PO SCH (09:44)
[2023-02-12] MEDS: HYDROCHLOROTHIAZIDE 25 MG TABLET (FP) PO SCH (09:44)
[2023-02-12] MEDS: amLODIPine BESYLATE 10 MG TABLET (FP) PO SCH (09:44)
[2023-02-12] MEDS: MAGNESIUM OXIDE 400 MG TABLET (FP) PO SCH (09:44)
[2023-02-12] MEDS: BACITRACIN 0.9 GM PACKET TP SCH ×2 (09:44→21:09)
[2023-02-12] MEDS: TETRAHYDROZOLINE HCL EYE DROPS OU PRN ×2 (12:18→21:10)
[2023-02-12] MEDS: traZODone HCL 50 MG TABLET (FP) PO SCH (21:10)
[2023-02-12] MEDS: ATORVASTATIN CA 10 MG TABLET (FP) PO SCH (21:10)
[2023-02-12] MEDS: THIAMINE HCL 100 MG TABLET (FP) PO SCH (21:10)
[2023-02-13] MEDS: INSULIN SLIDING SCALE (NOVOLOG) 1 VIAL SQ SCH ×2 (06:12→16:23)
[2023-02-13] MEDS: BACITRACIN 0.9 GM PACKET TP SCH ×2 (09:37→21:13)
[2023-02-13] MEDS: HYDROCHLOROTHIAZIDE 25 MG TABLET (FP) PO SCH (09:37)
[2023-02-13] MEDS: PRENATAL VITAMINS W/ FOLIC ACID TABLET (FP) PO SCH (09:37)
[2023-02-13] MEDS: amLODIPine BESYLATE 10 MG TABLET (FP) PO SCH (09:38)
[2023-02-13] MEDS: MAGNESIUM OXIDE 400 MG TABLET (FP) PO SCH (09:38)
[2023-02-13] MEDS: PANTOPRAZOLE 40 MG TABLET PO SCH (09:38)
[2023-02-13] MEDS: TETRAHYDROZOLINE HCL EYE DROPS OU PRN (21:12)
[2023-02-13] MEDS: traZODone HCL 50 MG TABLET (FP) PO SCH (21:13)
[2023-02-13] MEDS: THIAMINE HCL 100 MG TABLET (FP) PO SCH (21:13)
[2023-02-13] MEDS: ATORVASTATIN CA 10 MG TABLET (FP) PO SCH (21:13)
[2023-02-14] MEDS: INSULIN SLIDING SCALE (NOVOLOG) 1 VIAL SQ SCH ×2 (06:12→16:28)
[2023-02-14] MEDS: PRENATAL VITAMINS W/ FOLIC ACID TABLET (FP) PO SCH (09:41)
[2023-02-14] MEDS: TETRAHYDROZOLINE HCL EYE DROPS OU PRN (09:41)
[2023-02-14] MEDS: amLODIPine BESYLATE 10 MG TABLET (FP) PO SCH (09:42)
[2023-02-14] MEDS: MAGNESIUM OXIDE 400 MG TABLET (FP) PO SCH (09:42)
[2023-02-14] MEDS: HYDROCHLOROTHIAZIDE 25 MG TABLET (FP) PO SCH (09:42)
[2023-02-14] MEDS: PANTOPRAZOLE 40 MG TABLET PO SCH (09:42)
[2023-02-14] MEDS: BACITRACIN 0.9 GM PACKET TP SCH ×2 (09:42→21:16)
[2023-02-14] MEDS: traZODone HCL 50 MG TABLET (FP) PO SCH (21:16)
[2023-02-14] MEDS: ATORVASTATIN CA 10 MG TABLET (FP) PO SCH (21:16)
[2023-02-14] MEDS: THIAMINE HCL 100 MG TABLET (FP) PO SCH (21:17)
[2023-02-15] MEDS: INSULIN SLIDING SCALE (NOVOLOG) 1 VIAL SQ SCH ×2 (06:26→16:29)
[2023-02-15] MEDS: MAGNESIUM OXIDE 400 MG TABLET (FP) PO SCH (09:48)
[2023-02-15] MEDS: PRENATAL VITAMINS W/ FOLIC ACID TABLET (FP) PO SCH (09:48)
[2023-02-15] MEDS: amLODIPine BESYLATE 10 MG TABLET (FP) PO SCH (09:48)
[2023-02-15] MEDS: PANTOPRAZOLE 40 MG TABLET PO SCH (09:49)
[2023-02-15] MEDS: HYDROCHLOROTHIAZIDE 25 MG TABLET (FP) PO SCH (09:49)
[2023-02-15] MEDS: BACITRACIN 0.9 GM PACKET TP SCH ×2 (09:49→21:42)
[2023-02-15] MEDS: traZODone HCL 50 MG TABLET (FP) PO SCH (21:42)
[2023-02-15] MEDS: TETRAHYDROZOLINE HCL EYE DROPS OU PRN (21:43)
[2023-02-15] MEDS: THIAMINE HCL 100 MG TABLET (FP) PO SCH (21:44)
[2023-02-15] MEDS: ATORVASTATIN CA 10 MG TABLET (FP) PO SCH (21:44)
[2023-02-16] MEDS: INSULIN SLIDING SCALE (NOVOLOG) 1 VIAL SQ SCH ×2 (06:37→16:40)
[2023-02-16 07:29] VITALS: RESP 18
[2023-02-16] MEDS: amLODIPine BESYLATE 10 MG TABLET (FP) PO SCH (10:03)
[2023-02-16] MEDS: HYDROCHLOROTHIAZIDE 25 MG TABLET (FP) PO SCH (10:03)
[2023-02-16] MEDS: BACITRACIN 0.9 GM PACKET TP SCH ×2 (10:03→21:13)
[2023-02-16] MEDS: PANTOPRAZOLE 40 MG TABLET PO SCH (10:03)
[2023-02-16] MEDS: MAGNESIUM OXIDE 400 MG TABLET (FP) PO SCH (10:03)
[2023-02-16] MEDS: PRENATAL VITAMINS W/ FOLIC ACID TABLET (FP) PO SCH (10:04)
[2023-02-16] MEDS: TETRAHYDROZOLINE HCL EYE DROPS OU PRN ×2 (10:05→21:13)
[2023-02-16] MEDS: THIAMINE HCL 100 MG TABLET (FP) PO SCH (21:12)
[2023-02-16] MEDS: ATORVASTATIN CA 10 MG TABLET (FP) PO SCH (21:12)
[2023-02-16] MEDS: traZODone HCL 50 MG TABLET (FP) PO SCH (21:12)
[2023-02-17] MEDS: INSULIN SLIDING SCALE (NOVOLOG) 1 VIAL SQ SCH ×2 (06:55→16:53)
[2023-02-17] MEDS: PANTOPRAZOLE 40 MG TABLET PO SCH (09:50)
[2023-02-17] MEDS: PRENATAL VITAMINS W/ FOLIC ACID TABLET (FP) PO SCH (09:50)
[2023-02-17] MEDS: amLODIPine BESYLATE 10 MG TABLET (FP) PO SCH (09:50)
[2023-02-17] MEDS: MAGNESIUM OXIDE 400 MG TABLET (FP) PO SCH (09:50)
[2023-02-17] MEDS: HYDROCHLOROTHIAZIDE 25 MG TABLET (FP) PO SCH (09:50)
[2023-02-17] MEDS: BACITRACIN 0.9 GM PACKET TP SCH ×2 (09:50→21:27)
[2023-02-17] MEDS: THIAMINE HCL 100 MG TABLET (FP) PO SCH (21:26)
[2023-02-17] MEDS: traZODone HCL 50 MG TABLET (FP) PO SCH (21:26)
[2023-02-17] MEDS: ATORVASTATIN CA 10 MG TABLET (FP) PO SCH (21:26)
[2023-02-18] MEDS: INSULIN SLIDING SCALE (NOVOLOG) 1 VIAL SQ SCH ×2 (06:26→16:37)
[2023-02-18] MEDS: MAGNESIUM OXIDE 400 MG TABLET (FP) PO SCH (09:59)
[2023-02-18] MEDS: HYDROCHLOROTHIAZIDE 25 MG TABLET (FP) PO SCH (09:59)
[2023-02-18] MEDS: BACITRACIN 0.9 GM PACKET TP SCH ×2 (09:59→21:28)
[2023-02-18] MEDS: PRENATAL VITAMINS W/ FOLIC ACID TABLET (FP) PO SCH (09:59)
[2023-02-18] MEDS: amLODIPine BESYLATE 10 MG TABLET (FP) PO SCH (09:59)
[2023-02-18] MEDS: PANTOPRAZOLE 40 MG TABLET PO SCH (09:59)
[2023-02-18] MEDS: traZODone HCL 50 MG TABLET (FP) PO SCH (21:28)
[2023-02-18] MEDS: THIAMINE HCL 100 MG TABLET (FP) PO SCH (21:28)
[2023-02-18] MEDS: ATORVASTATIN CA 10 MG TABLET (FP) PO SCH (21:29)
[2023-02-19] MEDS ORDERED: INSULIN (NOVOLOG) ASPART 100 UNITS/ML 10ML VIAL ONE ×2 (06:26→08:04)
[2023-02-19] MEDS: INSULIN SLIDING SCALE (NOVOLOG) 1 VIAL SQ SCH ×2 (06:28→16:46)
[2023-02-19] MEDS: PRENATAL VITAMINS W/ FOLIC ACID TABLET (FP) PO SCH (09:57)
[2023-02-19] MEDS: MAGNESIUM OXIDE 400 MG TABLET (FP) PO SCH (09:58)
[2023-02-19] MEDS: HYDROCHLOROTHIAZIDE 25 MG TABLET (FP) PO SCH (09:58)
[2023-02-19] MEDS: amLODIPine BESYLATE 10 MG TABLET (FP) PO SCH (09:58)
[2023-02-19] MEDS: BACITRACIN 0.9 GM PACKET TP SCH ×2 (09:58→21:32)
[2023-02-19] MEDS: PANTOPRAZOLE 40 MG TABLET PO SCH (09:58)
[2023-02-19] MEDS: THIAMINE HCL 100 MG TABLET (FP) PO SCH (21:31)
[2023-02-19] MEDS: traZODone HCL 50 MG TABLET (FP) PO SCH (21:31)
[2023-02-19] MEDS: ATORVASTATIN CA 10 MG TABLET (FP) PO SCH (21:31)
[2023-02-20] MEDS: INSULIN SLIDING SCALE (NOVOLOG) 1 VIAL SQ SCH ×2 (06:48→16:29)
[2023-02-20] MEDS ORDERED: INSULIN (NOVOLOG) ASPART 100 UNITS/ML 10ML VIAL ONE (06:51)
[2023-02-20] MEDS: PRENATAL VITAMINS W/ FOLIC ACID TABLET (FP) PO SCH (09:42)
[2023-02-20] MEDS: amLODIPine BESYLATE 10 MG TABLET (FP) PO SCH (09:43)
[2023-02-20] MEDS: MAGNESIUM OXIDE 400 MG TABLET (FP) PO SCH (09:43)
[2023-02-20] MEDS: PANTOPRAZOLE 40 MG TABLET PO SCH (09:43)
[2023-02-20] MEDS: BACITRACIN 0.9 GM PACKET TP SCH ×2 (09:43→21:13)
[2023-02-20] MEDS: HYDROCHLOROTHIAZIDE 25 MG TABLET (FP) PO SCH (09:43)
[2023-02-20] MEDS: ATORVASTATIN CA 10 MG TABLET (FP) PO SCH (21:13)
[2023-02-20] MEDS: traZODone HCL 50 MG TABLET (FP) PO SCH (21:13)
[2023-02-20] MEDS: THIAMINE HCL 100 MG TABLET (FP) PO SCH (21:13)
[2023-02-21 07:07] VITALS: BP 142/84; PULSE 84; TEMP 97.5
[2023-02-21] MEDS: INSULIN SLIDING SCALE (NOVOLOG) 1 VIAL SQ SCH (07:42)
== END 2023-02-21 08:56 | disposition home or self-care (01) | DRG 772 ==
LOC: YASAS 15:23 → Y5N 15:34
PROVIDERS: ADMIT Allergy & Immunology; ATTEND Psychiatry & Neurology Pain Medicine
PROC: HZ42ZZZ Group Counseling for Substance Abuse Treatment, Cognitive-Behavioral (ICD-10-PCS; principal; 2023-02-07)
DX: F10.20 Alcohol dependence, uncomplicated (principal); E78.5 Hyperlipidemia, unspecified; I10 Essential (primary) hypertension; E11.9 Type 2 diabetes mellitus without complications; Z79.4 Long term (current) use of insulin; R79.89 Other specified abnormal findings of blood chemistry; R19.5 Other fecal abnormalities; Z87.19 Personal history of other diseases of the digestive system; Z88.8 Allergy status to other drugs, medicaments and biological substances
CPT/HCPCS: 36415; 80061; 82140; 82272; 82652; 82962; 83735; 84100; 85610; 87389

== ENCOUNTER 2023-02-09 12:01 | Emergency (ER) | payer BC, OTHER ==
[2023-02-09 12:10] VITALS: BP 139/90; PULSE 76; RESP 18; TEMP 98.4; BMI 28.9
[2023-02-09] MEDS ORDERED: SODIUM CHLORIDE 0.9% 500 ML INFUS.BAG IV ONE (14:43)
[2023-02-09 14:49] LABS: INR 0.96 (0.83-1.09); PROTHROMBIN TIME (PATIENT) 11.1 SEC (9.7-13.0)
[2023-02-09 14:50] LABS: BASO % 0.5 % (0-2.0); EOS % 3.4 % (0-4.5); HEMATOCRIT 39.9 % (35.4-49); HEMOGLOBIN 13.1 GM/dL (11.7-16.9); LYMPH % 12.1 % (8-40); MCH 30.6 pg (25.7-33.7); MCHC 32.9 g/dl (32.0-35.9); MEAN PLT VOLUME 9.3 fl (7.5-11.1); PLATELET COUNT 270 10^3/uL (134-434); RBC 4.29 M/mm3 (4.00-5.60); RDW 14.7 % (11.9-15.9); WHITE BLOOD COUNT 9.3 K/mm3 (4.0-10.0)
[2023-02-09 14:52] LABS: ACTIVATED PTT 30.3 SECONDS (25.2-36.5)
[2023-02-09 15:01] LABS: POTASSIUM 4.1 mmol/L (3.5-5.1)
[2023-02-09 15:06] LABS: BLOOD UREA NITROGEN 13.5 mg/dL (7-18)
[2023-02-09 15:08] LABS: CREATININE 0.7 mg/dL (0.55-1.3)
[2023-02-09 15:10] LABS: BILIRUBIN,TOTAL 0.2 mg/dL (0.2-1); TOT PROT 7.7 g/dl (6.4-8.2)
== END 2023-02-09 15:51 | disposition home or self-care (01) ==
LOC: JER 12:01
DX: K92.2 Gastrointestinal hemorrhage, unspecified (principal)
CPT/HCPCS: 36415; 71045-TC-FY; 80053; 82272; 85025; 85610; 85730; 86850; 86900; 86901; 93005; 93010; 99285-25

== ENCOUNTER 2024-04-06 13:55 | Inpatient (IN) | payer OTHER ==
[2024-04-06 15:35] VITALS: BMI 29.4
[2024-04-06] MEDS ORDERED: DICYCLOMINE HCL 10 MG CAPSULE PO PRN (17:17)
[2024-04-06] MEDS ORDERED: guaiFENesin 600 MG TABLET.ER (FP) PO PRN (17:17)
[2024-04-06] MEDS ORDERED: ONDANSETRON *ODT* 4 MG TABLET SL PRN (17:17)
[2024-04-06] MEDS ORDERED: BENZONATATE 200 MG CAPSULE PO PRN (17:17)
[2024-04-06] MEDS ORDERED: BISMUTH SUBSALICYLATE 524 MG/30 ML PO PRN (17:17)
[2024-04-06] MEDS ORDERED: POLYETHYLENE GLYCOL (HEALTHYLAX) 3350 17 GM PACKET PO PRN (17:17)
[2024-04-06] MEDS ORDERED: NICOTINE POLACRILEX 2 MG GUM BUC PRN (17:17)
[2024-04-06] MEDS ORDERED: LOPERAMIDE HCL 2 MG CAPSULE PO PRN (17:17)
[2024-04-06] MEDS ORDERED: IBUPROFEN 400 MG TABLET (FP) PO PRN (17:17)
[2024-04-06] MEDS ORDERED: IBUPROFEN 600 MG TABLET (FP) PO PRN (17:17)
[2024-04-06] MEDS ORDERED: MAGNESIUM HYDROX 2400MG/30ML ORAL SUSPENSION 30 ML CUP PO PRN (17:17)
[2024-04-06] MEDS ORDERED: NICOTINE POLACRILEX 2 MG LOZENGE BC PRN (17:17)
[2024-04-06] MEDS ORDERED: BENZOCAINE/MENTHOL (CHLORASEPTIC ) LOZENGE MM PRN (17:17)
[2024-04-06] MEDS ORDERED: MAG HYDROX/AL HYDROX/SIMETH 30 ML UNIT-DOSE CUP PO PRN (17:17)
[2024-04-06] MEDS ORDERED: METOPROLOL TARTRATE 25 MG TABLET (FP) ONE (18:00)
[2024-04-06] MEDS: METOPROLOL TARTRATE 25 MG TABLET (FP) PO ONE (18:03)
[2024-04-06] MEDS: hydrOXYzine PAMOATE 25 MG CAPSULE (FP) PO PRN (18:53)
[2024-04-06] MEDS: ACETAMINOPHEN 325 MG TABLET (FP) PO PRN (18:53)
[2024-04-06] MEDS: BACITRACIN ZINC 15 GM TUBE TOPICAL OINTMENT TP SCH (19:36)
[2024-04-06] MEDS: INSULIN ASPART SLIDING SCALE (NOVOLOG) 1 VIAL SQ SCH (22:14)
[2024-04-06] MEDS: MELATONIN 5 MG TABLETS PO SCH (22:15)
[2024-04-06] MEDS: THIAMINE 100 MG TABLET PO SCH (22:15)
[2024-04-06] MEDS: METHOCARBAMOL 500 MG TABLET PO PRN (22:16)
[2024-04-07 09:26] LABS: CHLORIDE 105 mmol/L (98-107); POTASSIUM 3.3 mmol/L (3.5-5.1); SODIUM 138 mmol/L (136-145)
[2024-04-07 09:31] LABS: ALBUMIN 3.6 g/dl (3.4-5.0); ANION GAP 7 mmol/L (4-13); CALCIUM 9.1 mg/dL (8.5-10.1); CO2 26 mmol/L (21-32)
[2024-04-07 09:32] LABS: GLUCOSE,RANDOM 159 mg/dL (74-106); HEMATOCRIT 38.3 % (35.4-49); HEMOGLOBIN 12.3 GM/dL (11.7-16.9); MCH 29.4 pg (25.7-33.7); MCHC 32.2 g/dl (32.0-35.9); MEAN CELL VOLUME 91.2 fl (80-96); MEAN PLT VOLUME 10.1 fl (7.5-11.1); PLATELET COUNT 95 10^3/uL (134-434); RDW 14.3 % (11.9-15.9); WHITE BLOOD COUNT 5.7 K/mm3 (4.0-10.0)
[2024-04-07 09:34] LABS: SGPT/ALT 54 U/L (13-61)
[2024-04-07 09:35] LABS: CREATININE 0.7 mg/dL (0.55-1.3); SGOT/AST 103 U/L (15-37)
[2024-04-07 09:36] LABS: ALK PHOS 97 U/L (45-117); TOT PROT 7.3 g/dl (6.4-8.2)
[2024-04-07] MEDS: amLODIPine BESYLATE 10 MG TABLET (FP) PO SCH (10:36)
[2024-04-07] MEDS: PRENATAL VITAMINS W/ FOLIC ACID TABLET (FP) PO SCH (10:36)
[2024-04-07] MEDS: PANTOPRAZOLE 40 MG TABLET PO SCH (10:38)
[2024-04-07] MEDS: HYDROCHLOROTHIAZIDE 25 MG TABLET (FP) PO SCH (10:38)
[2024-04-07] MEDS: ASPIRIN COATED 81 MG TABLET.EC PO SCH (10:38)
[2024-04-07] MEDS: POTASSIUM CHLORIDE ORAL LIQUID 20 MEQ/15 ML PO ONE (10:39)
[2024-04-07] MEDS: cloNIDine HCL 0.1 MG TABLET PO ONE (15:14)
[2024-04-07] MEDS: ATORVASTATIN CA 10 MG TABLET (FP) PO SCH (22:08)
[2024-04-08 09:17] VITALS: BP 133/88; PULSE 85; RESP 16; TEMP 97.6
[2024-04-08] MEDS ORDERED: traZODone HCL 100 MG TABLET (FP) PO SCH (22:00)
== END 2024-04-08 12:20 | disposition home or self-care (01) | DRG 775 ==
LOC: YASAS 13:55 → Y3N 18:00
PROVIDERS: ADMIT Allergy & Immunology; ATTEND Surgery
PROC: HZ2ZZZZ Detoxification Services for Substance Abuse Treatment (ICD-10-PCS; principal; 2024-04-06)
DX: F10.20 Alcohol dependence, uncomplicated (principal); F17.210 Nicotine dependence, cigarettes, uncomplicated; F10.282 Alcohol dependence with alcohol-induced sleep disorder; F10.280 Alcohol dependence with alcohol-induced anxiety disorder; F32.A Depression, unspecified; I10 Essential (primary) hypertension; K21.9 Gastro-esophageal reflux disease without esophagitis; E11.9 Type 2 diabetes mellitus without complications; Z79.4 Long term (current) use of insulin; M54.50 Low back pain, unspecified; G89.29 Other chronic pain; R16.0 Hepatomegaly, not elsewhere classified
CPT/HCPCS: 36415; 80053; 80305; 80307; 82962; 84132; 85027; 86780

== ENCOUNTER 2024-11-22 12:21 | Inpatient (IN) | payer OTHER ==
[2024-11-22 12:39] VITALS: BMI 29.6
[2024-11-22] MEDS ORDERED: MAG HYDROX/AL HYDROX/SIMETH 30 ML UNIT-DOSE CUP PO PRN (13:05)
[2024-11-22] MEDS ORDERED: ONDANSETRON *ODT* 4 MG TABLET SL PRN (13:05)
[2024-11-22] MEDS ORDERED: guaiFENesin 600 MG TABLET.ER (FP) PO PRN (13:05)
[2024-11-22] MEDS ORDERED: BENZONATATE 200 MG CAPSULE PO PRN (13:05)
[2024-11-22] MEDS ORDERED: MAGNESIUM HYDROX 2400MG/30ML ORAL SUSPENSION 30 ML CUP PO PRN (13:05)
[2024-11-22] MEDS ORDERED: LOPERAMIDE HCL 2 MG CAPSULE PO PRN (13:05)
[2024-11-22] MEDS ORDERED: ACETAMINOPHEN 325 MG TABLET (FP) PO PRN (13:05)
[2024-11-22] MEDS ORDERED: BENZOCAINE/MENTHOL (CHLORASEPTIC ) LOZENGE MM PRN (13:05)
[2024-11-22] MEDS ORDERED: NALOXONE (NARCAN) HCL 4 MG/0.1 ML SPRAY NS PRN (13:05)
[2024-11-22] MEDS ORDERED: DICYCLOMINE HCL 10 MG CAPSULE PO PRN (13:05)
[2024-11-22] MEDS ORDERED: hydrOXYzine PAMOATE 25 MG CAPSULE (FP) PO PRN (13:05)
[2024-11-22] MEDS ORDERED: diazePAM 5 MG TABLET PO PRN (13:05)
[2024-11-22] MEDS ORDERED: NICOTINE POLACRILEX 2 MG GUM BUC PRN (13:05)
[2024-11-22] MEDS ORDERED: POLYETHYLENE GLYCOL (HEALTHYLAX) 3350 17 GM PACKET PO PRN (13:05)
[2024-11-22] MEDS: HYDROCHLOROTHIAZIDE 25 MG TABLET (FP) PO SCH (15:24)
[2024-11-22] MEDS: amLODIPine BESYLATE 10 MG TABLET (FP) PO SCH (15:24)
[2024-11-22] MEDS: diazePAM 5 MG TABLET PO SCH (17:08)
[2024-11-22] MEDS: INSULIN ASPART SLIDING SCALE (NOVOLOG) 1 VIAL SQ SCH (17:08)
[2024-11-22] MEDS: METHOCARBAMOL 500 MG TABLET PO PRN (17:11)
[2024-11-22] MEDS: METOPROLOL TARTRATE 50 MG TABLET (FP) PO ONE (19:02)
[2024-11-22] MEDS: ATORVASTATIN CA 10 MG TABLET (FP) PO SCH (22:18)
[2024-11-22] MEDS: THIAMINE 100 MG TABLET PO SCH (22:18)
[2024-11-22] MEDS: MELATONIN 5 MG TABLETS PO SCH (22:18)
[2024-11-23] MEDS: ASPIRIN COATED 81 MG TABLET.EC PO SCH (10:09)
[2024-11-23] MEDS: PRENATAL VITAMINS W/ FOLIC ACID TABLET (FP) PO SCH (10:09)
[2024-11-23] MEDS: PANTOPRAZOLE 40 MG TABLET PO SCH (10:10)
[2024-11-23] MEDS ORDERED: chlordiazePOXIDE HCL 25 MG CAPSULE PO PRN (11:05)
[2024-11-23 11:21] LABS: HEMATOCRIT 34.2 % (40.1-51.0); HEMOGLOBIN 11.2 g/dL (13.7-17.5); MCHC 32.7 g/dl (32.3-36.5); MEAN CELL VOLUME 93.2 fl (79.0-92.2); MEAN PLT VOLUME 11.9 fl (9.4-12.4); PLATELET COUNT 138 x10^3/uL (163-337); RDW 13.9 % (12.1-15.9)
[2024-11-23] MEDS: chlordiazePOXIDE HCL 25 MG CAPSULE PO SCH (11:24)
[2024-11-23 11:30] LABS: POTASSIUM 3.7 mmol/L (3.5-5.1)
[2024-11-23 11:51] LABS: BLOOD UREA NITROGEN 14.2 mg/dL (7-18); CALCIUM 9.7 mg/dL (8.5-10.1)
[2024-11-23 11:53] LABS: BILIRUBIN,TOTAL 0.5 mg/dL (0.2-1)
[2024-11-23 11:54] LABS: CREATININE 0.8 mg/dL (0.55-1.3)
[2024-11-23 12:17] LABS: TOT PROT 7.8 g/dl (6.4-8.2)
[2024-11-23] MEDS: SUVOREXANT 10 MG TABLET PO PRN (22:07)
[2024-11-24] MEDS: diazePAM 5 MG TABLET PO SCH (05:36)
[2024-11-24 06:41] VITALS: RESP 16
[2024-11-24 09:47] VITALS: BP 137/91; PULSE 90; TEMP 97.7
[2024-11-25] MEDS ORDERED: chlordiazePOXIDE HCL 25 MG CAPSULE PO SCH (05:00)
[2024-11-25] MEDS ORDERED: diazePAM 5 MG TABLET PO SCH (06:00)
[2024-11-26] MEDS ORDERED: chlordiazePOXIDE HCL 10 MG CAPSULE PO PRN
[2024-11-26] MEDS ORDERED: chlordiazePOXIDE HCL 10 MG CAPSULE PO SCH (05:00)
[2024-11-26] MEDS ORDERED: diazePAM 5 MG TABLET PO ONE (06:00)
[2024-11-27] MEDS ORDERED: chlordiazePOXIDE HCL 10 MG CAPSULE PO SCH (05:00)
[2024-11-28] MEDS ORDERED: chlordiazePOXIDE HCL 10 MG CAPSULE PO ONE (05:00)
== END 2024-11-24 09:50 | disposition home or self-care (01) | DRG 775 ==
LOC: YASAS 12:21 → Y6N 13:23
PROVIDERS: ADMIT Family Medicine; ATTEND Family Medicine
PROC: HZ2ZZZZ Detoxification Services for Substance Abuse Treatment (ICD-10-PCS; principal; 2024-11-22)
DX: F10.230 Alcohol dependence with withdrawal, uncomplicated (principal); F17.210 Nicotine dependence, cigarettes, uncomplicated; F10.280 Alcohol dependence with alcohol-induced anxiety disorder; F10.282 Alcohol dependence with alcohol-induced sleep disorder; I25.10 Atherosclerotic heart disease of native coronary artery without angina pectoris; I10 Essential (primary) hypertension; E78.5 Hyperlipidemia, unspecified; K21.9 Gastro-esophageal reflux disease without esophagitis; E11.59 Type 2 diabetes mellitus with other circulatory complications; Z79.4 Long term (current) use of insulin; M54.50 Low back pain, unspecified; G89.29 Other chronic pain; Z87.19 Personal history of other diseases of the digestive system
CPT/HCPCS: 36415; 80053; 80305; 80307; 82962; 85027; 86780; 93005; 93010